=== PATIENT | female | born 1980 | race Asian ===

== ENCOUNTER → 2016-05-16 | Outpatient (CLI) | payer OTHER | LOC: MW.CHGS 14:09 | PROVIDERS: ATTEND Surgery | DX: K21.9 Gastro-esophageal reflux disease without esophagitis (principal) | CPT/HCPCS: 36415; 86677 ==

== ENCOUNTER 2016-08-25 07:10 | Emergency (ER) | payer OTHER ==
[2016-08-25] MEDS ORDERED: Sodium Chloride 0.9% 10 ML Syringe FLUSH PRN (07:24)
[2016-08-25] MEDS ORDERED: Sodium Chloride 0.9% 2.5 ML Syringe FLUSH PRN (07:24)
[2016-08-25] MEDS ORDERED: Ketorolac 30 MG/ML SDV IVPUSH ONE (07:24)
[2016-08-25] MEDS ORDERED: Sodium Chloride 0.9% 1,000 ML IV ONE (07:29)
--- NOTE | 2016-08-25 07:29 | EDM.PDOC ---
ED HPI GENERAL MEDICAL PROBLEM - General Chief Complaint: Abdominal Pain Stated Complaint: ABDOMINAL PAIN AND NUMB LEGS Time Seen by Provider: 08/25/16 07:16 - History of Present Illness INITIAL COMMENTS - FREE TEXT/NARRATIVE: HISTORY AND PHYSICAL: History of present illness: The patient is a 35-year-old female with a long-standing history of dysmenorrhea and infertility was been followed by both our women's clinic as well as [facility]; she most recently saw a provider at [facility] because she was late for her And a test last week that was negative. The patient states that her whole life she has had very heavy periods and very painful periods and she and her significant other have been trying to get so they have been seeing a fertility specialist. She has had multiple ultrasounds as well as blood work regarding today's symptoms and her infertility. She presents today stating that her last period was in June and she started having her period yesterday and it presented in a similar way with heavy flow and severe cramping. She presents today to the ED because of the severe cramping. She says that she was given Toradol by Dr. Hale at [facility] and that seems to work but she is running out of that prescription and she is concerned about using any more of it at home. She took Percocet today that she had left over from a procedure on her ears and said that that did not help. The patient denies any upper abdominal pain fever chills chest pain or shortness of breath but does say that she feels tingly all over because of the discomfort. She also feels somewhat lightheaded because of the discomfort. She has not passed out or blacked out and has no extremity pain weakness back pain. She states that her current pelvic pain is similar to her prior episodes and that there is nothing new about that or the menstrual blood flow. The patient is eating and drinking normally Review of systems: As per history of present illness and below otherwise all systems reviewed and negative. Past medical history: As per history of present illness and as reviewed below otherwise noncontributory. Surgical history: As per history of present illness and as reviewed below otherwise noncontributory. Social history: No reported history of drug or alcohol abuse. Family history: As per history of present illness and as reviewed below otherwise noncontributory. Physical exam: Gen.: Well-developed well-nourished female who looks uncomfortable and somewhat anxious but who is nontoxic HEENT: Atraumatic, normocephalic, negative for conjunctival pallor or scleral icterus, mucous membranes moist, throat clear, neck supple, nontender, trachea midline. Lungs: Clear to auscultation, breath sounds equal bilaterally, chest nontender. Heart: S1S2, regular rate and rhythm no murmurs Abdomen: Soft, nondistended, bowel sounds are slightly hypoactive, there is mild tenderness in the suprapubic pelvic area. Negative for masses or hepatosplenomegaly. Negative for costovertebral tenderness. Pelvis: Stable nontender. Genitourinary: Deferred. Rectal: Deferred. Extremities: Atraumatic, negative for cords or calf pain. Neurovascular unremarkable. Neuro: Awake, alert, oriented. Cranial nerves II through XII unremarkable. Cerebellum unremarkable. Motor and sensory unremarkable throughout. Exam nonfocal. Diagnostics: Serum hCG CBC pelvic ultrasound Therapeutics: IV fluids Toradol Dilaudid I discussed with the patient doing basic labs and she is agreeable. We discussed potentially doing a pelvic ultrasound but she states that she has had multiple ultrasounds she has never been diagnosed with a fibroid or ovarian cysts and she would like to defer that at this time. There is nothing new about the pain only that it is not being controlled at home and she is running out of her Toradol. I will reapproach this with the patient later in her evaluation 0823: Patient states the pain is somewhat better she would like something else for pain. I will give her a small dose of Dilaudid. She would like to pursue the ultrasound at this time I will order it 0940: Ultrasound results were discussed with the patient and care plan for home was discussed. The patient would like to not return [facility] and would like to be referred to [facility] which I will give her that information. She would also like some more Toradol as that seems to help her when she's at home and I will write for some. I also wrote for a few [place] in case the Toradol did not work. Patient states that currently in the ED she feels much improved. I cautioned her on reasons to return to the ED and the need for follow-up. Impression: Dysmenorrhea/menorrhagia with history of same Definitive disposition and diagnosis as appropriate pending reevaluation and review of above. Pelvic Pain Score (Numeric/FACES): 10 - Related Data Allergies Allergy/AdvReac Type Severity Reaction Status Date / Time omeprazole [From Prilosec] Allergy Itching Verified 08/25/16 07:20 omeprazole magnesium Allergy Itching Verified 08/25/16 07:20 [From Prilosec] vitamin C Allergy Rash Uncoded 03/25/16 10:24 Home Meds: Home Meds Iron 1 tab PO DAILY 07/08/15 [History] Labetalol [Normodyne] 200 mg PO BID 07/08/15 [History] Vit B12/Fa/Pyridoxine HCl/AA15 [Glycotrol] 1 tab PO DAILY 10/06/15 [History] Fertility Injections 03/25/16 [History] Yfl121/FA/Omega3/Dha/Fish Oil [ Gummies] 1 each PO 03/25/16 [History] Past Medical History HEENT History: Reports: Hard of Hearing Other HEENT History: has glasses, has bilateral hearing aides Cardiovascular History: Reports: Hypertension Respiratory History: Reports: None Gastrointestinal History: Reports: None Genitourinary History: Reports: UTI, Recurrent Other Genitourinary History: URI 2 months ago, has not reoccured 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 Other OB/BYN History: Excessive Menses 'heavy', 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 Musculoskeletal History: Reports: None Neurological History: Reports: Migraines Other Neuro History: Some headaches, not chronic Psychiatric History: Reports: None Endocrine/Metabolic History: Reports: None Hematologic History: Reports: None Immunologic History: Reports: None Oncologic (Cancer) History: Reports: None Dermatologic History: Reports: None - Infectious Disease History Infectious Disease History: Reports: None - Past Surgical History HEENT Surgical History: Reports: Other (See Below) Female Surgical History: Reports: Other (See Below) Social & Family History - Family History Family Medical History: Noncontributory - Tobacco Use Smoking Status *Q: Never Smoker Second Hand Smoke Exposure: No - Caffeine Use Caffeine Use: Reports: None - Alcohol Use Days Per Week of Alcohol Use: 0 - Recreational Drug Use Recreational Drug Use: No Drug Use in Last 12 Months: No ED ROS GENERAL - Review of Systems Review Of Systems: ROS reveals no pertinent complaints other than HPI. ED EXAM, GENERAL - Physical Exam Exam: See Below (See dictation) Course - Vital Signs Last Recorded V/S: Last Vital Signs Temp 36.4 C 08/25/16 07:18 Pulse 87 08/25/16 08:04 Resp 16 08/25/16 08:04 BP 146/87 H 08/25/16 08:04 Pulse Ox 95 08/25/16 08:04 - Orders/Labs/Meds Orders: Active Orders 24 hr Category Date Time Status Pelvis Non OB Comp [US] Stat Exams 08/25/16 08:22 Taken Sodium Chloride 0.9% [Saline Flush] Med 08/25/16 07:24 Active 10 ml FLUSH ASDIRECTED PRN Sodium Chloride 0.9% [Saline Flush] Med 08/25/16 07:24 Active 2.5 ml FLUSH ASDIRECTED PRN Saline Lock Insert [OM.PC] Stat Oth 08/25/16 07:24 Ordered Medication Orders Sodium Chloride (Saline Flush) 10 ml FLUSH ASDIRECTED PRN PRN Reason: Keep Vein Open Sodium Chloride (Saline Flush) 2.5 ml FLUSH ASDIRECTED PRN PRN Reason: Keep Vein Open Labs: Laboratory Tests 08/25/16 08/25/16 08/25/16 Range/Units 07:25 07:25 08:20 WBC 7.30 (4.0-11.0) K/uL RBC 4.61 (4.30-5.90) M/uL Hgb 13.0 (12.0-16.0) g/dL Hct 38.5 (36.0-46.0) % MCV 83.5 (80.0-98.0) fL MCH 28.2 (27.0-32.0) pg MCHC 33.8 (31.0-37.0) g/dL RDW Std Deviation 38.9 (28.0-62.0) fl RDW Coeff of Gay 13 (11.0-15.0) % Plt Count 351 (150-400) K/uL MPV 8.60 (7.40-12.00) fL Neut % (Auto) 65.9 (48.0-80.0) % Lymph % (Auto) 27.5 (16.0-40.0) % [place] % (Auto) 3.7 (0.0-15.0) % Eos % (Auto) 2.6 (0.0-7.0) % Baso % (Auto) 0.3 (0.0-1.5) % Neut # (Auto) 4.8 (1.4-5.7) K/uL Lymph # (Auto) 2.0 (0.6-2.4) K/uL [place] # (Auto) 0.3 (0.0-0.8) K/uL Eos # (Auto) 0.2 (0.0-0.7) K/uL Baso # (Auto) 0.0 (0.0-0.1) K/uL Nucleated RBC % 0.0 /100WBC Nucleated RBCs # 0 K/uL HCG, Qual NEGATIVE (NEG) Urine Color YELLOW Urine Appearance CLEAR Urine pH 6.0 (5.0-8.0) Ur Specific [place] <= 1.005 (1.001-1.035) Urine Protein NEGATIVE (NEGATIVE) mg/dL Urine Glucose (UA) NEGATIVE (NEGATIVE) mg/dL Urine Ketones NEGATIVE (NEGATIVE) mg/dL Urine Occult Blood LARGE H (NEGATIVE) Urine Nitrite NEGATIVE (NEGATIVE) Urine Bilirubin NEGATIVE (NEGATIVE) Urine Urobilinogen 0.2 (<2.0) EU/dL Ur Leukocyte Esterase NEGATIVE (NEGATIVE) Urine RBC 5-10 (0-2/HPF) Urine WBC 0-1 (0-5/HPF) Ur Epithelial Cells RARE (NONE-FEW) Amorphous Sediment NOT SEEN (NEGATIVE) Urine Bacteria NOT SEEN (NEGATIVE) Urine Mucus NOT SEEN (NONE-MOD) Meds: Medications Generic Name Dose Route Start Last Admin Trade Name Freq PRN Reason Stop Dose Admin Sodium Chloride 10 ml 08/25/16 07:24 Saline Flush FLUSH ASDIRECTED PRN Keep Vein Open Sodium Chloride 2.5 ml 08/25/16 07:24 Saline Flush FLUSH ASDIRECTED PRN Keep Vein Open Discontinued Medications Generic Name Dose Route Start Last Admin Trade Name Freq PRN Reason Stop Dose Admin Hydromorphone HCl 0.5 mg 08/25/16 08:23 08/25/16 08:29 Dilaudid IVPUSH 08/25/16 08:24 0.5 mg ONETIME ONE Administration Sodium Chloride 1,000 mls @ 999 mls/hr 08/25/16 07:29 08/25/16 07:31 Normal Saline IV 08/25/16 08:29 999 mls/hr STAT ONE Administration Ketorolac Tromethamine 30 mg 08/25/16 07:24 08/25/16 07:30 Toradol IVPUSH 08/25/16 07:25 30 mg ONETIME ONE Administration Departure - Departure Time of Disposition: 10:02 Disposition: Home, Self-Care 01 Condition: Good Clinical Impression: Dysmenorrhea Menorrhagia Qualifiers: Menorrahagia type: with irregular cycle Qualified Code(s): N92.1 - Excessive and frequent menstruation with irregular cycle - Discharge Information Forms: ED Department Discharge Additional Instructions: The following information is given to patients seen in the emergency department who are being discharged to home. This information is to outline your options for follow-up care. We provide all patients seen in our emergency department with a follow-up referral. The need for follow-up, as well as the timing and circumstances, are variable depending upon the specifics of your emergency department visit. If you don't have a primary care physician on staff, we will provide you with a referral. We always advise you to contact your personal physician following an emergency department visit to inform them of the circumstance of the visit and for follow-up with them and/or the need for any referrals to a consulting specialist. The emergency department will also refer you to a specialist when appropriate. This referral assures that you have the opportunity for followup care with a specialist. All of these measure are taken in an effort to provide you with optimal care, which includes your followup. Under all circumstances we always encourage you to contact your private physician who remains a resource for coordinating your care. When calling for followup care, please make the office aware that this follow-up is from your recent emergency room visit. If for any reason you are refused follow-up, please contact the [facility] emergency department at and ask to speak to the emergency department charge nurse. [facility] Primary care-Women's Health [address] [place] [address] [place], [place] [id number] [address] [place] [address] Please contact and follow up with your provider at [facility] and also connect with our women's health clinic for further care and evaluation of these chronic problems. Please use medications as needed and directed. Push hydration and return to ER as needed and as discussed - My Orders Last 24 Hours: My Active Orders 08/25/16 07:24 Sodium Chloride 0.9% [Saline Flush] 10 ml FLUSH ASDIRECTED PRN Sodium Chloride 0.9% [Saline Flush] 2.5 ml FLUSH ASDIRECTED PRN Saline Lock Insert [OM.PC] Stat 08/25/16 08:22 Pelvis Non OB Comp [US] Stat - Assessment/Plan Last 24 Hours: My Active Orders 08/25/16 07:24 Sodium Chloride 0.9% [Saline Flush] 10 ml FLUSH ASDIRECTED PRN Sodium Chloride 0.9% [Saline Flush] 2.5 ml FLUSH ASDIRECTED PRN Saline Lock Insert [OM.PC] Stat 08/25/16 08:22 Pelvis Non OB Comp [US] Stat
[2016-08-25] MEDS ORDERED: HYDROmorphone 2 MG/ML Syringe IVPUSH ONE (08:23)
[2016-08-25 10:14] VITALS: BP 123/74
--- NOTE | 2016-08-25 17:51 | US ---
EXAM DATE: 08/25/16 PATIENT'S AGE: 35 Patient: PEYTON DURAN Facility: [place], [place] Site . Site : 1980 Study: US Pelvis [id number]/25/2016 9:24:56 AM Ordering Physician: Zaida Olsen Final Report: HISTORY: Pelvic pain, dysmenorrhea. FINDINGS: Multiple grayscale static images from a transvaginal pelvic ultrasound were evaluated. This measures 12 x 9 x 7 x 9 x 7.7 cm. The echotexture is very heterogeneous. The endometrial stripe difficult to appreciate. The last series of images demonstrates the posterior aspect of the endometrial cavity. It is difficult to determine if there is a 5.1 centimeter abnormally thickened endometrial cavity or subendometrial fibroid. No fluid in the cul-de-sac prior The right ovary measures 3.3 x 2.1 x 1.8 cm. Normal appearance with normal blood flow. The left ovary measures 2.1 x 2.2 x 1.0 cm. Some appearance with normal blood flow. IMPRESSION: 1. Enlarged heterogeneous appearing uterus. 2. The endometrial stripe is very difficult to appreciate. The last series of images demonstrates visualization of the posterior aspect of the endometrial cavity. It is difficult to rib there is a 5.1 cm sub endometrial fibroid or marked thickening of the endometrial cavity. MRI may be of value for further characterization. 3. Normal ovaries. Dictated by Celina Scott MD @ 08/25/2016 9:42:35 AM Dictated by: Celina Scott MD @ 08/25/2016 09:43:14 (Electronic Signature) Report Signed by Proxy. [facility] VA MEDICAL CENTERLeonel
== END 2016-08-25 10:14 | disposition home or self-care (01) ==
LOC: MW.ED 07:10
DX: N94.6 Dysmenorrhea, unspecified (principal); N92.1 Excessive and frequent menstruation with irregular cycle; I10 Essential (primary) hypertension; G43.909 Migraine, unspecified, not intractable, without status migrainosus; Z88.8 Allergy status to other drugs, medicaments and biological substances
CPT/HCPCS: 36415; 76856; 81001; 84703; 85025; 96361; 96374; 96375; 99284; J1170; J1885; J7040

== ENCOUNTER 2016-12-07 17:55 | Emergency (ER) | payer OTHER ==
--- NOTE | 2016-12-07 18:56 | EDM.PDOC ---
ED HPI GENERAL MEDICAL PROBLEM - General Chief Complaint: Genitourinary Problem Stated Complaint: UTI Time Seen by Provider: 12/07/16 18:04 Source of Information: Reports: Patient History Limitations: Reports: No Limitations - History of Present Illness INITIAL COMMENTS - FREE TEXT/NARRATIVE: HISTORY AND PHYSICAL: History of present illness: [36-year-old female with a prior history of urinary tract infection now complaining of dysuria concerned that she has urinary tract infection. Patient denies vaginal discharge. She denies possible and it was tested yesterday. Patient does not of back pain fever nausea or vomiting. She is not currently on antibiotics] Review of systems: As per history of present illness and below otherwise all systems reviewed and negative. Past medical history: As per history of present illness and as reviewed below otherwise noncontributory. Surgical history: As per history of present illness and as reviewed below otherwise noncontributory. Social history: No reported history of drug or alcohol abuse. Family history: As per history of present illness and as reviewed below otherwise noncontributory. Physical exam: Well-appearing patient distress clear lungs regular rhythm no tachycardia nontender abdomen and pelvis, no CVA tenderness. Normal extremities HEENT: Normocephalic, atraumatic, pupils normal and symmetrical, supple neck, no meningismus, normal color Lungs: Normal and symmetrical chest wall excursion bilateral with no tachypnea or increased work of breathing, grossly normal chest exam Heart: No tachycardia in triage Abdomen: Normal-appearing, nondistended, no visible mass or asymmetry Pelvis: Normal-appearing Genitourinary: Deferred Rectal exam: Deferred Extremities: Atraumatic, normal use and range of motion, no visible evidence of gross neurovascular compromise Neuro: Awake, alert, oriented. Normal and appropriate mental status. Cranial nerves grossly unremarkable. Motor function normal. Nonfocal neurologic exam. Diagnostics: UA pending Therapeutics: [] Impression: [Urinary tract infection Dysuria] Plan: [Signs and symptoms consistent with UTI. UA pending. Keflex will be prescribed as well as peridium. Negative test yesterday. No further workup or treatment indicated. Patient with no systemic symptoms or evidence of pyelonephritis. Patient and family agree with outpatient follow-up and strict return precautions given] Definitive disposition and diagnosis as appropriate pending reevaluation and review of above. Bladder Pain Score (Numeric/FACES): 5 - Related Data Allergies Allergy/AdvReac Type Severity Reaction Status Date / Time paper tape Allergy Rash Uncoded 12/07/16 18:35 vitamin C Allergy Rash Uncoded 03/25/16 10:24 Home Meds: Home Meds Iron 1 tab PO DAILY 07/08/15 [History] Labetalol [Normodyne] 200 mg PO BID 07/08/15 [History] Vit B12/Fa/Pyridoxine HCl/AA15 [Glycotrol] 1 tab PO DAILY 10/06/15 [History] Fertility Injections 03/25/16 [History] Ftq901/FA/Omega3/Dha/Fish Oil [ Gummies] 1 each PO 03/25/16 [History] Cephalexin [Keflex] 500 mg PO QID 5 Days capsule 12/07/16 [Rx] Phenazopyridine HCl [Pyridium] 200 mg PO TID #6 tablet 12/07/16 [Rx] Prasterone (DHEA) [Dhea 25] 25 mg BID 12/07/16 [History] Past Medical History HEENT History: Reports: Hard of Hearing Other HEENT History: has glasses, has bilateral hearing aides Cardiovascular History: Reports: Hypertension Respiratory History: Reports: None Gastrointestinal History: Reports: None Genitourinary History: Reports: UTI, Recurrent Other Genitourinary History: URI 2 months ago 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 Other OB/BYN History: Excessive Menses 'heavy', 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 Musculoskeletal History: Reports: None Neurological History: Reports: Migraines Other Neuro History: Some headaches, not chronic Psychiatric History: Reports: None Endocrine/Metabolic History: Reports: None Hematologic History: Reports: None Immunologic History: Reports: None Oncologic (Cancer) History: Reports: None Dermatologic History: Reports: None - Infectious Disease History Infectious Disease History: Reports: None - Past Surgical History Head Surgeries/Procedures: Reports: None HEENT Surgical History: Reports: Other (See Below) Female Surgical History: Reports: Other (See Below) Other Female Surgeries/Procedures: will be starting fertility tx again soon Social & Family History - Family History Family Medical History: Noncontributory - Tobacco Use Smoking Status *Q: Never Smoker Second Hand Smoke Exposure: No - Caffeine Use Caffeine Use: Reports: None - Alcohol Use Days Per Week of Alcohol Use: 0 - Recreational Drug Use Recreational Drug Use: No Drug Use in Last 12 Months: No ED ROS GENERAL - Review of Systems Review Of Systems: See Below (History of present illness) ED EXAM, RENAL/ - Physical Exam Exam: See Below (History of present illness) Course - Vital Signs Last Recorded V/S: Last Vital Signs Temp 36.7 C 12/07/16 18:22 Pulse 88 12/07/16 18:22 Resp 18 12/07/16 18:22 BP 140/91 H 12/07/16 18:22 Pulse Ox 97 12/07/16 18:22 - Orders/Labs/Meds Orders: Active Orders 24 hr Category Date Time Status UA W/MICROSCOPIC [URIN] Stat Lab 12/07/16 18:30 Results Labs: Laboratory Tests 12/07/16 Range/Units 18:30 Urine Color YELLOW Urine Appearance CLEAR Urine pH 6.0 (5.0-8.0) Ur Specific [employer] 1.025 (1.001-1.035) Urine Protein NEGATIVE (NEGATIVE) mg/dL Urine Glucose (UA) NEGATIVE (NEGATIVE) mg/dL Urine Ketones NEGATIVE (NEGATIVE) mg/dL Urine Occult Blood NEGATIVE (NEGATIVE) Urine Nitrite NEGATIVE (NEGATIVE) Urine Bilirubin NEGATIVE (NEGATIVE) Urine Urobilinogen 0.2 (<2.0) EU/dL Ur Leukocyte Esterase TRACE (NEGATIVE) Departure - Departure Time of Disposition: 18:52 Disposition: Home, Self-Care 01 Condition: Good Clinical Impression: Urinary tract infection - Discharge Information Instructions: Urinary Tract Infection, Adult, [id number] Referrals: PCP,None [Primary Care Provider] - Additional Instructions: You have a urinary tract infection. Finish Keflex as prescribed. Take Pyridium as needed for burning with urination. Rest and drink plenty of fluids. Follow- up with your DrKim in 2-3 days and return immediately for new severe or worsening symptoms specifically for worsening signs of infection including fever and/or vomiting - My Orders Last 24 Hours: My Active Orders 12/07/16 18:30 UA W/MICROSCOPIC [URIN] Stat - Assessment/Plan Last 24 Hours: My Active Orders 12/07/16 18:30 UA W/MICROSCOPIC [URIN] Stat
[2016-12-07 19:10] VITALS: BP 146/96
== END 2016-12-07 19:07 | disposition home or self-care (01) ==
LOC: MW.ED 17:55
DX: N39.0 Urinary tract infection, site not specified (principal); Z79.899 Other long term (current) drug therapy
CPT/HCPCS: 81001; 99283; 99284

== ENCOUNTER 2016-12-08 21:44 | Emergency (ER) | payer OTHER ==
[2016-12-08] MEDS ORDERED: Ketorolac 60 MG/2 ML SDV IM ONE (21:57)
--- NOTE | 2016-12-08 22:02 | EDM.PDOC ---
ED HPI GENERAL MEDICAL PROBLEM - General Chief Complaint: Upper Extremity Injury/Pain Stated Complaint: PT HURT RT ELBOW Time Seen by Provider: 12/08/16 21:57 Source of Information: Reports: Patient History Limitations: Reports: No Limitations - History of Present Illness INITIAL COMMENTS - FREE TEXT/NARRATIVE: HISTORY AND PHYSICAL: []36-year-old female presenting with right elbow pain History of Present Illness: []Patient has history of epicondylar tendinitis and was not wearing her brace when she was doing more in the kitchen lifted some things and excruciating pain to her right elbow. Complains of some pain at tingling to her fingers. She is taking her Celebrex at home and has not had relief from the discomfort Review of Systems: As per history of present illness and below otherwise all systems reviewed and negative. Past medical history: As per history of present illness and as reviewed below otherwise noncontributory. Surgical history: As per history of present illness and as reviewed below otherwise noncontributory. Social history: No reported history of drug or alcohol abuse. Family history: As per history of present illness and as reviewed below otherwise noncontributory. Physical exam: Alert female who obviously has some pain. Accompanied by her she is answering questions appropriately. Using full sentences and is not short of breath. She is nontoxic in appearance HEENT: Atraumatic, normocehpalic, pupils reactive, negative for conjunctival pallor or scleral icterus,r, neck supple, nontender, trachea midline. Lungs: Clear to auscultation, breath sounds equal bilaterally, chest non tender. Heart: S1S2, regular, negative for clicks, rubs, or JVD. Abdomen: Soft, nondistended, nontender. Pelvis: Stable nontender. Genitourinary: Deferred. Rectal: Deferred Extremities: Atraumatic, negative for cords or calf pain. Right elbow with edema. Mild heat. Full range of motion is noted to her right upper extremity. Pulses intact. Good cap refill to the fingers and good sensation. Neurovascular unremarkable. Neuro: Awake, alert, oriented. Cranial nerves II through XII unremarkable. Cerebellum unremarkable. Motor and sensory unremarkable throughout. Exam nonfocal. Diagnostics: [] Therapeutics: []Toradol 60 IM Impression: []Right epicondylar tendinitis Plan: [] Discharge to home Prednisone for home use Use brace daily Follow-up with your orthopedics pediatric physician Definitive disposition and diagnosis as appropriate pending reevaluation and review of above. - Related Data Allergies Allergy/AdvReac Type Severity Reaction Status Date / Time paper tape Allergy Rash Uncoded 12/07/16 18:35 vitamin C Allergy Rash Uncoded 03/25/16 10:24 Home Meds: Home Meds Iron 1 tab PO DAILY 07/08/15 [History] Labetalol [Normodyne] 200 mg PO BID 07/08/15 [History] Vit B12/Fa/Pyridoxine HCl/AA15 [Glycotrol] 1 tab PO DAILY 10/06/15 [History] Fertility Injections 03/25/16 [History] Onr702/FA/Omega3/Dha/Fish Oil [ Gummies] 1 each PO 03/25/16 [History] Cephalexin [Keflex] 500 mg PO QID 5 Days capsule 12/07/16 [Rx] Phenazopyridine HCl [Pyridium] 200 mg PO TID #6 tablet 12/07/16 [Rx] Prasterone (DHEA) [Dhea 25] 25 mg BID 12/07/16 [History] methylPREDNISolone [Medrol] 4 mg PO ASDIRECTED #1 dosepk 12/08/16 [Rx] Past Medical History HEENT History: Reports: Hard of Hearing Other HEENT History: has glasses, has bilateral hearing aides Cardiovascular History: Reports: Hypertension Respiratory History: Reports: None Gastrointestinal History: Reports: None Genitourinary History: Reports: UTI, Recurrent Other Genitourinary History: URI 2 months ago MUSIC COPYIST 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: Reports: None Other OB/BYN History: Excessive Menses 'heavy', 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 Musculoskeletal History: Reports: None Neurological History: Reports: Migraines Other Neuro History: Some headaches, not chronic Psychiatric History: Reports: None Endocrine/Metabolic History: Reports: None Hematologic History: Reports: None Immunologic History: Reports: None Oncologic (Cancer) History: Reports: None Dermatologic History: Reports: None - Infectious Disease History Infectious Disease History: Reports: None - Past Surgical History Head Surgeries/Procedures: Reports: None HEENT Surgical History: Reports: Other (See Below) Female Surgical History: Reports: Other (See Below) Other Female Surgeries/Procedures: will be starting fertility tx again soon Social & Family History - Family History Family Medical History: Noncontributory - Tobacco Use Smoking Status *Q: Never Smoker Second Hand Smoke Exposure: No - Caffeine Use Caffeine Use: Reports: None - Alcohol Use Days Per Week of Alcohol Use: 0 - Recreational Drug Use Recreational Drug Use: No Drug Use in Last 12 Months: No Review of Systems - Review of Systems Review Of Systems: ROS reveals no pertinent complaints other than HPI. ED EXAM, GENERAL - Physical Exam Exam: See Below (See dictation) Course - Orders/Labs/Meds Orders: Active Orders 24 hr Category Date Time Status Ketorolac [Toradol] Med 12/08/16 21:57 Once 60 mg IM ONETIME ONE Departure - Departure Time of Disposition: 22:00 Disposition: Home, Self-Care 01 Condition: Good Clinical Impression: Right elbow tendonitis - Discharge Information Prescriptions: methylPREDNISolone [Medrol] 4 mg PO ASDIRECTED #1 dosepk Instructions: Tendinitis, [id number]-Clld Referrals: PCP,None [Primary Care Provider] - Additional Instructions: The following information is given to patients seen in the emergency department who are being discharged to home. This information is to outline your options for follow-up care. We provide all patients seen in our emergency department with a follow-up referral. The need for follow-up, as well as the timing and circumstances, are variable depending upon the specifics of your emergency department visit. If you don't have a primary care physician on staff, we will provide you with a referral. We always advise you to contact your personal physician following an emergency department visit to inform them of the circumstance of the visit and for follow-up with them and/or the need for any referrals to a consulting specialist. The emergency department will also refer you to a specialist when appropriate. This referral assures that you have the opportunity for followup care with a specialist. All of these measure are taken in an effort to provide you with optimal care, which includes your followup. Under all circumstances we always encourage you to contact your private physician who remains a resource for coordinating your care. When calling for followup care, please make the office aware that this follow-up is from your recent emergency room visit. If for any reason you are refused follow-up, please contact the [facility] emergency department at and asked to speak to the emergency department charge nurse. 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
[2016-12-08 23:05] VITALS: BP 141/81
== END 2016-12-08 22:31 | disposition home or self-care (01) ==
LOC: MW.ED 21:44
DX: M77.11 Lateral epicondylitis, right elbow (principal); I10 Essential (primary) hypertension; G43.909 Migraine, unspecified, not intractable, without status migrainosus; Z87.440 Personal history of urinary (tract) infections; Z88.8 Allergy status to other drugs, medicaments and biological substances; Z91.09 Other allergy status, other than to drugs and biological substances
CPT/HCPCS: 96372; 99283; J1885; 99282

== ENCOUNTER 2017-01-06 00:46 | Observation (INO) | payer OTHER ==
[2017-01-06] MEDS ORDERED: Sodium Chloride 0.9% 1,000 ML IV SCH (01:00)
--- NOTE | 2017-01-06 01:00 | EDM.PDOC ---
ED HPI GENERAL MEDICAL PROBLEM - General Chief Complaint: Abdominal Pain Stated Complaint: ABDOMINAL P AIN Time Seen by Provider: 01/06/17 00:58 - History of Present Illness INITIAL COMMENTS - FREE TEXT/NARRATIVE: HISTORY AND PHYSICAL: History of present illness: Patient 36-year-old female who is currently undergoing fertility therapy presents with concern of abdominal pain this came on somewhat acutely she denies fever chills nausea vomiting denies urinary symptoms or vaginal discharge or irregular bleeding denies trauma Review of systems: As per history of present illness and below otherwise all systems reviewed and negative. Past medical history: As per history of present illness and as reviewed below otherwise noncontributory. Surgical history: As per history of present illness and as reviewed below otherwise noncontributory. Social history: No reported history of drug or alcohol abuse. Family history: As per history of present illness and as reviewed below otherwise noncontributory. Physical exam: HEENT: Atraumatic, normocephalic, pupils reactive, negative for conjunctival pallor or scleral icterus, mucous membranes moist, throat clear, neck supple, nontender, trachea midline. Lungs: Clear to auscultation, breath sounds equal bilaterally, chest nontender. Heart: S1S2, regular, negative for clicks, rubs, or JVD. Abdomen: Soft, nondistended, nonlocalized tenderness no rebound no guarding. Negative for masses or hepatosplenomegaly. Negative for costovertebral tenderness. Pelvis: Stable nontender. Genitourinary: Deferred. Rectal: Deferred. Extremities: Atraumatic, negative for cords or calf pain. Neurovascular unremarkable. Neuro: Awake, alert, oriented. Cranial nerves II through XII unremarkable. Cerebellum unremarkable. Motor and sensory unremarkable throughout. Exam nonfocal. Diagnostics: CBC CMP hCG UA CT abdomen and pelvis Therapeutics: saline 1 L bolus Impression: #1 abdominal pain Definitive disposition and diagnosis as appropriate pending reevaluation and review of above. abdominal pain Pain Score (Numeric/FACES): 10 - Related Data Allergies Allergy/AdvReac Type Severity Reaction Status Date / Time paper tape Allergy Rash Uncoded 01/06/17 00:51 vitamin C Allergy Rash Uncoded 01/06/17 00:51 Home Meds: Home Meds Iron 1 tab PO DAILY 07/08/15 [History] Labetalol [Normodyne] 200 mg PO BID 07/08/15 [History] Vit B12/Fa/Pyridoxine HCl/AA15 [Glycotrol] 1 tab PO DAILY 10/06/15 [History] Fertility Injections 03/25/16 [History] Brs209/FA/Omega3/Dha/Fish Oil [ Gummies] 1 each PO 03/25/16 [History] Cephalexin [Keflex] 500 mg PO QID 5 Days capsule 12/07/16 [Rx] Phenazopyridine HCl [Pyridium] 200 mg PO TID #6 tablet 12/07/16 [Rx] Prasterone (DHEA) [Dhea 25] 25 mg BID 12/07/16 [History] methylPREDNISolone [Medrol] 4 mg PO ASDIRECTED #1 dosepk 12/08/16 [Rx] Past Medical History - Past Health History Medical/Surgical History: Denies Medical/Surgical History HEENT History: Reports: Hard of Hearing Other HEENT History: has glasses, has bilateral hearing aides Cardiovascular History: Reports: Hypertension Respiratory History: Reports: None Gastrointestinal History: Reports: None Genitourinary History: Reports: UTI, Recurrent Other Genitourinary History: URI 2 months ago HOSPICE NURSE PRACTITIONER History: Reports: None Other OB/BYN History: Excessive Menses 'heavy', 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 Musculoskeletal History: Reports: None Neurological History: Reports: Migraines Other Neuro History: Some headaches, not chronic Psychiatric History: Reports: None Endocrine/Metabolic History: Reports: None Hematologic History: Reports: None Immunologic History: Reports: None Oncologic (Cancer) History: Reports: None Dermatologic History: Reports: None - Infectious Disease History Infectious Disease History: Reports: None - Past Surgical History Head Surgeries/Procedures: Reports: None HEENT Surgical History: Reports: Other (See Below) Female Surgical History: Reports: Other (See Below) Other Female Surgeries/Procedures: will be starting fertility tx again soon Social & Family History - Family History Family Medical History: Noncontributory - Tobacco Use Smoking Status *Q: Never Smoker Second Hand Smoke Exposure: No - Caffeine Use Caffeine Use: Reports: Coffee, Soda - Alcohol Use Days Per Week of Alcohol Use: 0 - Recreational Drug Use Recreational Drug Use: No Drug Use in Last 12 Months: No ED ROS GENERAL - Review of Systems Review Of Systems: ROS reveals no pertinent complaints other than HPI. ED EXAM, GENERAL - Physical Exam Exam: See Below (See dictation) Course - Vital Signs Text/Narrative:: Repeat abdominal exam has tenderness that's more localized right lower quadrant there is some equivocal guarding no rebound lab CT was discussed with Dr. Hollingsworth general surgeon suspension cord tier who agrees with admission for observation IV hydration patient to be kept nothing by mouth narcotic analgesics for pain repeat CBC in a.m. I discussed this plan with patient and family who agree Last Recorded V/S: Last Vital Signs Temp 36.3 C 01/06/17 00:51 Pulse 87 01/06/17 00:51 Resp 18 01/06/17 00:51 BP 144/88 H 01/06/17 00:51 Pulse Ox 98 01/06/17 00:51 - Orders/Labs/Meds Orders: Active Orders 24 hr Category Date Time Status Admission Status [Patient Status] [ADT] Stat ADT 01/06/17 02:15 Active Abdomen Pelvis wo Cont [CT] Stat Exams 01/06/17 00:56 Taken UA W/MICROSCOPIC [URIN] Stat Lab 01/06/17 01:50 Results Sodium Chloride 0.9% [Normal Saline] 1,000 ml Med 01/06/17 01:00 Active IV ASDIRECTED Medication Orders Sodium Chloride (Normal Saline) 1,000 mls @ 999 mls/hr IV ASDIRECTED DAYO Last Admin: 01/06/17 01:02 Dose: 999 mls/hr Labs: Laboratory Tests 01/05/17 01/05/17 01/05/17 Range/Units 23:55 23:55 23:55 WBC 20.01 H (4.0-11.0) K/uL RBC 4.39 (4.30-5.90) M/uL Hgb 13.1 (12.0-16.0) g/dL Hct 37.2 (36.0-46.0) % MCV 84.7 (80.0-98.0) fL MCH 29.8 (27.0-32.0) pg MCHC 35.2 (31.0-37.0) g/dL RDW Std Deviation 38.9 (28.0-62.0) fl RDW Coeff of Gay 13 (11.0-15.0) % Plt Count 274 (150-400) K/uL MPV 8.70 (7.40-12.00) fL Neut % (Auto) 78.3 (48.0-80.0) % Lymph % (Auto) 15.6 L (16.0-40.0) % Waldo % (Auto) 5.7 (0.0-15.0) % Eos % (Auto) 0.3 (0.0-7.0) % Baso % (Auto) 0.1 (0.0-1.5) % Neut # (Auto) 15.6 H (1.4-5.7) K/uL Lymph # (Auto) 3.1 H (0.6-2.4) K/uL Waldo # (Auto) 1.2 H (0.0-0.8) K/uL Eos # (Auto) 0.1 (0.0-0.7) K/uL Baso # (Auto) 0.0 (0.0-0.1) K/uL Nucleated RBC % 0.0 /100WBC Nucleated RBCs # 0 K/uL Sodium 136 (136-146) mmol/L Potassium 3.9 (3.5-5.1) mmol/L Chloride 102 (98-110) mmol/L Carbon Dioxide 22 (21-31) mmol/L BUN 10 (6.0-23.0) mg/dL Creatinine 0.8 (0.6-1.5) mg/dL Est Cr Clr Drug Dosing 69.16 mL/min Estimated GFR (MDRD) > 60.0 ml/min Glucose 153 H (60-110) mg/dL Calcium 9.6 (8.8-10.8) mg/dL Total Bilirubin 0.9 (0.1-1.5) mg/dL AST 23 (5-40) IU/L ALT 14 (8-54) IU/L Alkaline Phosphatase 49 (40-150) Total Protein 7.7 (6.0-8.0) g/dL Albumin 4.2 (3.5-5.0) g/dL Globulin 3.5 (2.0-3.5) g/dL Albumin/Globulin Ratio 1.2 L (1.3-2.8) HCG, Qual NEGATIVE (NEG) Urine Color Urine Appearance Urine pH (5.0-8.0) Ur Specific [place] (1.001-1.035) Urine Protein (NEGATIVE) mg/dL Urine Glucose (UA) (NEGATIVE) mg/dL Urine Ketones (NEGATIVE) mg/dL Urine Occult Blood (NEGATIVE) Urine Nitrite (NEGATIVE) Urine Bilirubin (NEGATIVE) Urine Urobilinogen (<2.0) EU/dL Ur Leukocyte Esterase (NEGATIVE) 01/06/17 Range/Units 01:50 WBC (4.0-11.0) K/uL RBC (4.30-5.90) M/uL Hgb (12.0-16.0) g/dL Hct (36.0-46.0) % MCV (80.0-98.0) fL MCH (27.0-32.0) pg MCHC (31.0-37.0) g/dL RDW Std Deviation (28.0-62.0) fl RDW Coeff of Gay (11.0-15.0) % Plt Count (150-400) K/uL MPV (7.40-12.00) fL Neut % (Auto) (48.0-80.0) % Lymph % (Auto) (16.0-40.0) % Waldo % (Auto) (0.0-15.0) % Eos % (Auto) (0.0-7.0) % Baso % (Auto) (0.0-1.5) % Neut # (Auto) (1.4-5.7) K/uL Lymph # (Auto) (0.6-2.4) K/uL Waldo # (Auto) (0.0-0.8) K/uL Eos # (Auto) (0.0-0.7) K/uL Baso # (Auto) (0.0-0.1) K/uL Nucleated RBC % /100WBC Nucleated RBCs # K/uL Sodium (136-146) mmol/L Potassium (3.5-5.1) mmol/L Chloride (98-110) mmol/L Carbon Dioxide (21-31) mmol/L BUN (6.0-23.0) mg/dL Creatinine (0.6-1.5) mg/dL Est Cr Clr Drug Dosing mL/min Estimated GFR (MDRD) ml/min Glucose (60-110) mg/dL Calcium (8.8-10.8) mg/dL Total Bilirubin (0.1-1.5) mg/dL AST (5-40) IU/L ALT (8-54) IU/L Alkaline Phosphatase (40-150) Total Protein (6.0-8.0) g/dL Albumin (3.5-5.0) g/dL Globulin (2.0-3.5) g/dL Albumin/Globulin Ratio (1.3-2.8) HCG, Qual (NEG) Urine Color YELLOW Urine Appearance SLT CLOUDY Urine pH 6.0 (5.0-8.0) Ur Specific [place] <= 1.005 (1.001-1.035) Urine Protein NEGATIVE (NEGATIVE) mg/dL Urine Glucose (UA) NEGATIVE (NEGATIVE) mg/dL Urine Ketones TRACE H (NEGATIVE) mg/dL Urine Occult Blood LARGE H (NEGATIVE) Urine Nitrite NEGATIVE (NEGATIVE) Urine Bilirubin NEGATIVE (NEGATIVE) Urine Urobilinogen 0.2 (<2.0) EU/dL Ur Leukocyte Esterase NEGATIVE (NEGATIVE) Meds: Medications Generic Name Dose Route Start Last Admin Trade Name Freq PRN Reason Stop Dose Admin Sodium Chloride 1,000 mls @ 999 mls/hr 01/06/17 01:00 01/06/17 01:02 Normal Saline IV 999 mls/hr ASDIRECTED DAYO Administration Discontinued Medications Generic Name Dose Route Start Last Admin Trade Name Freq PRN Reason Stop Dose Admin Hydromorphone HCl 1 mg 01/06/17 02:12 Dilaudid IVPUSH 01/06/17 02:13 ONETIME ONE Ondansetron HCl 4 mg 01/06/17 01:05 01/06/17 01:09 Zofran IVPUSH 01/06/17 01:06 4 mg ONETIME ONE Administration Departure - Departure Time of Disposition: 02:21 Disposition: Refer to Observation Condition: Good Clinical Impression: Abdominal pain - Discharge Information Referrals: Ana [facility] [Primary Care Provider] - Forms: ED Department Discharge - My Orders Last 24 Hours: My Active Orders 01/06/17 00:56 Abdomen Pelvis wo Cont [CT] Stat 01/06/17 01:00 Sodium Chloride 0.9% [Normal Saline] 1,000 ml IV ASDIRECTED 01/06/17 01:50 UA W/MICROSCOPIC [URIN] Stat 01/06/17 02:15 Admission Status [Patient Status] [ADT] Stat - Assessment/Plan Last 24 Hours: My Active Orders 01/06/17 00:56 Abdomen Pelvis wo Cont [CT] Stat 01/06/17 01:00 Sodium Chloride 0.9% [Normal Saline] 1,000 ml IV ASDIRECTED 01/06/17 01:50 UA W/MICROSCOPIC [URIN] Stat 01/06/17 02:15 Admission Status [Patient Status] [ADT] Stat
[2017-01-06] MEDS ORDERED: Ondansetron 4 MG/2 ML SDV IVPUSH ONE (01:05)
[2017-01-06 01:32] LABS: CHLORIDE,CL 102 mmol/L (98-110); SODIUM,NA 136 mmol/L (136-146)
[2017-01-06] MEDS ORDERED: HYDROmorphone 1 MG/ML Syringe IVPUSH ONE (02:12)
[2017-01-06] MEDS ORDERED: Ondansetron 4 MG/2 ML SDV IVPUSH PRN (02:24)
[2017-01-06] MEDS: Sodium Chloride 0.9% 1,000 ML IV SCH ×2 (03:14→09:32)
[2017-01-06] MEDS: HYDROmorphone 1 MG/ML Syringe IVPUSH PRN ×3 (04:08→11:38)
--- NOTE | 2017-01-06 08:12 | PCM.HP ---
H&P History of Present Illness - General Date of Service: 01/06/17 Admit Problem/Dx: Admission Diagnosis/Problem Admission Diagnosis/Problem Abdominal pain Source of Information: Patient History Limitations: Reports: No Limitations - History of Present Illness Onset of Symptoms: Reports: Gradual Symptom Onset Date: 01/04/17 Duration of Symptoms: Reports: Day(s):, Chronic, Heavy Location: Reports: Abdomen Quality: Reports: Pressure, Same as Previous Episode Severity: Moderate Improves with: Reports: Other Worsens with: Reports: Movement Associated Symptoms: Reports: Loss of Appetite, Nausea/Vomiting. Denies: Chest Pain, Cough, Fever/Chills abdominal pain Pain Score (Numeric/FACES): 10 - Related Data Allergies/Adverse Reactions: Allergies Allergy/AdvReac Type Severity Reaction Status Date / Time paper tape Allergy Rash Uncoded 01/06/17 00:51 vitamin C Allergy Rash Uncoded 01/06/17 00:51 Home Medications: Home Meds Iron 1 tab PO DAILY 07/08/15 [History] Labetalol [Normodyne] 200 mg PO BID 07/08/15 [History] Vit B12/Fa/Pyridoxine HCl/AA15 [Glycotrol] 1 tab PO DAILY 10/06/15 [History] Fertility Injections 03/25/16 [History] Vib347/FA/Omega3/Dha/Fish Oil [ Gummies] 1 each PO 03/25/16 [History] Cephalexin [Keflex] 500 mg PO QID 5 Days capsule 12/07/16 [Rx] Phenazopyridine HCl [Pyridium] 200 mg PO TID #6 tablet 12/07/16 [Rx] Prasterone (DHEA) [Dhea 25] 25 mg BID 12/07/16 [History] methylPREDNISolone [Medrol] 4 mg PO ASDIRECTED #1 dosepk 12/08/16 [Rx] Past Medical History - Past Health History Medical/Surgical History: Denies Medical/Surgical History HEENT History: Reports: Hard of Hearing Other HEENT History: has glasses, has bilateral hearing aides Cardiovascular History: Reports: Hypertension Respiratory History: Reports: None Gastrointestinal History: Reports: None Genitourinary History: Reports: UTI, Recurrent Other Genitourinary History: URI 2 months ago CUSTOMER SUPPORT SPECIALIST History: Reports: None Other OB/BYN History: Excessive Menses 'heavy', 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 Musculoskeletal History: Reports: None Neurological History: Reports: Migraines Other Neuro History: Some headaches, not chronic Psychiatric History: Reports: None Endocrine/Metabolic History: Reports: None Hematologic History: Reports: None Immunologic History: Reports: None Oncologic (Cancer) History: Reports: None Dermatologic History: Reports: None - Infectious Disease History Infectious Disease History: Reports: Chicken Pox, Measles, Mumps, Rubella - Past Surgical History Head Surgeries/Procedures: Reports: None HEENT Surgical History: Reports: Other (See Below) Other HEENT Surgeries/Procedures: Mastoidectomy Female Surgical History: Reports: Other (See Below) Other Female Surgeries/Procedures: will be starting fertility tx again soon. Hysteroscopy Social & Family History - Family History Family Medical History: Noncontributory - Tobacco Use Smoking Status *Q: Never Smoker Second Hand Smoke Exposure: No - Caffeine Use Caffeine Use: Reports: Coffee, Soda, Tea - Alcohol Use Days Per Week of Alcohol Use: 0 - Recreational Drug Use Recreational Drug Use: No Drug Use in Last 12 Months: No H&P Review of Systems - Review of Systems: Review Of Systems: See Below General: Reports: Decreased Appetite. Denies: Fever, Night Sweats HEENT: Reports: No Symptoms Pulmonary: Denies: Shortness of Breath, Wheezing Cardiovascular: Denies: Chest Pain Gastrointestinal: Reports: Abdominal Pain, Decreased Appetite, Flatus, Nausea. Denies: Black Stool, Bloody Stool, Constipation, Distension, Vomiting Genitourinary: Denies: Dysuria, Frequency, Burning Musculoskeletal: Reports: No Symptoms Skin: Reports: No Symptoms Psychiatric: Reports: No Symptoms Neurological: Reports: No Symptoms Hematologic/Lymphatic: Reports: No Symptoms Immunologic: Reports: No Symptoms Exam - Exam Exam: See Below - Vital Signs Vital Signs: Last Vital Signs Temp 98.9 F 01/06/17 03:00 Pulse 92 01/06/17 03:00 Resp 18 01/06/17 03:00 BP 167/96 H 01/06/17 03:00 Pulse Ox 96 01/06/17 03:00 Weight: 141 lb 8.588 oz - Exam General: Alert, Oriented, Cooperative, Moderate Distress HEENT: Conjunctiva Clear, EOMI, Pupils Equal, Pupils Reactive. No: Scleral Icterus Neck: Supple, Trachea Midline Lungs: Clear to Auscultation, Normal Respiratory Effort Cardiovascular: Regular Rate, Regular Rhythm, Normal S1, Normal S2. No: Tachycardia, Systolic Murmur, Diastolic Murmur GI/Abdominal Exam: Soft, No Distention, Guarding, Tender, Mass (sensation of fullness in the left lower abdomen.). No: Rigid, Rebound, Hernia (Female) Exam: Deferred (Industrial Designer consult requested.), Other (currently menstruating) Rectal (Female) Exam: Deferred Back Exam: Normal Inspection Extremities: Normal Inspection, Normal Range of Motion, No Pedal Edema Peripheral Pulses: 4+: Posterior Tibial (L), Posterior Tibial (R), Dorsalis Pedis (L), Dorsalis Pedis (R) Skin: Warm, Dry, Intact Neurological: Cranial Nerves Intact Neuro Extensive - Mental Status: Alert, Oriented x3, Normal Mood/Affect, Normal Cognition Psychiatric: Alert, Normal Affect, Normal Mood - Patient Data Lab Results Last 24 hrs: Laboratory Results - last 24 hr 01/06/17 Range/Units 05:20 WBC 18.38 H (4.0-11.0) K/uL RBC 3.93 L (4.30-5.90) M/uL Hgb 11.4 L (12.0-16.0) g/dL Hct 33.8 L (36.0-46.0) % MCV 86.0 (80.0-98.0) fL MCH 29.0 (27.0-32.0) pg MCHC 33.7 (31.0-37.0) g/dL RDW Std Deviation 40.1 (28.0-62.0) fl RDW Coeff of Gay 13 (11.0-15.0) % Plt Count 264 (150-400) K/uL MPV 8.70 (7.40-12.00) fL Neut % (Auto) 81.2 H (48.0-80.0) % Lymph % (Auto) 12.6 L (16.0-40.0) % Holt % (Auto) 5.8 (0.0-15.0) % Eos % (Auto) 0.3 (0.0-7.0) % Baso % (Auto) 0.1 (0.0-1.5) % Neut # (Auto) 14.9 H (1.4-5.7) K/uL Lymph # (Auto) 2.3 (0.6-2.4) K/uL Holt # (Auto) 1.1 H (0.0-0.8) K/uL Eos # (Auto) 0.1 (0.0-0.7) K/uL Baso # (Auto) 0.0 (0.0-0.1) K/uL Nucleated RBC % 0.0 /100WBC Nucleated RBCs # 0 K/uL Result Diagrams: 01/06/17 05:20 01/05/17 23:55 *Q Meaningful Use (ADM) - VTE *Q VTE Criteria *Q: - Stroke *Q Stroke Criteria *Q: - AMI *Q AMI Criteria *Q: - Problem List (1) Abdominal fullness in left lower quadrant SNOMED Code(s): 055604723 ICD Code: R19.8 - OTH SYMPTOMS AND SIGNS INVOLVING THE DGSTV SYS AND ABDOMEN Status: Acute Priority: Medium Current Visit: Yes (2) Abdominal pain SNOMED Code(s): 08412991 ICD Code: R10.9 - UNSPECIFIED ABDOMINAL PAIN Status: Acute Priority: High Current Visit: Yes Qualifiers: Abdominal location: lower abdomen, unspecified Qualified Code(s): R10.30 - Lower abdominal pain, unspecified (3) Dysmenorrhea SNOMED Code(s): 574689272 ICD Code: N94.6 - DYSMENORRHEA, UNSPECIFIED Status: Acute Priority: Medium Current Visit: No Problem List Initiated/Reviewed/Updated: Yes Orders Last 24hrs: Active Orders 24 hr Category Date Time Status Bedrest [RC] ASDIRECTED Care 01/06/17 02:20 Active Notify Provider Status Change [RC] ASDIRECTED Care 01/06/17 02:28 Active Vital Signs [RC] PER UNIT ROUTINE Care 01/06/17 02:20 Active NPO [Nothing Per Oral Diet] [DIET] Diet 01/06/17 Breakfast Active HYDROmorphone [Dilaudid] Med 01/06/17 02:22 Active 1 mg IVPUSH Q4H PRN Ondansetron [Zofran] Med 01/06/17 02:24 Active 4 mg IVPUSH Q6H PRN Sodium Chloride 0.9% [Normal Saline] 1,000 ml Med 01/06/17 02:30 Active IV ASDIRECTED Medication Orders Hydromorphone HCl (Dilaudid) 1 mg IVPUSH Q4H PRN PRN Reason: Abdominal Pain Last Admin: 01/06/17 07:52 Dose: 1 mg Admin: 01/06/17 04:08 Dose: 1 mg Sodium Chloride (Normal Saline) 1,000 mls @ 999 mls/hr IV ASDIRECTED DAYO Last Admin: 01/06/17 01:02 Dose: 999 mls/hr Sodium Chloride (Normal Saline) 1,000 mls @ 150 mls/hr IV ASDIRECTED DAYO Last Admin: 01/06/17 03:14 Dose: 150 mls/hr Ondansetron HCl (Zofran) 4 mg IVPUSH Q6H PRN PRN Reason: Vomiting Assessment/Plan Comment:: Consult with Dr. Sanchez--he will see patient later this am. Right hydroureter on CT scan. Will treat conservatively for the time being. Do not think this is appendicitis. May be related to current fertility therapy.
[2017-01-06 12:16] VITALS: BP 159/93
--- NOTE | 2017-01-06 12:39 | CONS ---
DATE OF CONSULTATION: DATE OF : 1980 PRIMARY CARE PHYSICIAN: Ana Bello NP REFERRING PHYSICIAN: Dr. Les Zazueta. ADMITTING DIAGNOSES: Abdominal pain, possible acute appendicitis. BRIEF HISTORY: This patient is 36. She is well known to me. She have history of endometriosis and history of dysmenorrhea before and bilateral tubal occlusion. She is status post diagnostic laparoscopy done by me about a year ago. The patient seen in our clinic multiple times for severe abdominal cramps with her period and dysmenorrhea and treated conservatively. At this time, the patient is on IVF medication cycle to start an IVF process. She is admitted through the emergency room complaining of severe abdominal pain. There was an elevated white count of 22,000. There is no shift other than enlarged uterus about 14 to 15-week size with a possible for hydronephrosis in the ureters which maybe related to her stone. There is no evidence of obstruction in the ureter and does not look like there is any acute process in the CAT scan. I went and then did a consultation and taking history from the patient and I was in the process of examining the patient to do pelvic examination. However, the patient and her declines pelvic examination based on the recommendation of their infertility doctors in [place]. I had a phone conversation with her infertility doctor in [place]. She is not objecting to the pelvic exam per se, but she said that the patient was very adamant about not doing the pelvic exam, so she is relented to the patient request. She recommended doing a pelvic ultrasound, which is I am planning to do. Today on her examination, her abdominal examination essentially is benign so the infertility doctor in [place] is going to call the patient and take care of what is needed to be done as far as cancelling the IVF cycle at this time because she is not willing to do ovum retrieval with the elevated white count, which is appropriate. At this time, I think most likely that the patient is having severe menstrual cramping and dysmenorrhea, and maybe some element of urinary tract infection. I think she could be on antibiotic Cipro for 5 days and some pain medication and she could go home and she could be followed in my clinic or she can go call her infertility doctor in the [place] [facility] and go on with their advice. Thank you for consultation. NIURKA / BUCKY /[id number]
--- NOTE | 2017-01-08 12:26 | CT ---
EXAM DATE: 01/06/17 PATIENT'S AGE: 36 Patient: PEYTON DURAN Facility: [facility] [place], [place] Site . Site : 1980 Study: CT Abdomen/Pelvis wo cont [id number] 1:53:01 AM Ordering Physician: Onofre Sofia Final Report: INDICATION: Lower abdominal pain for 2 days TECHNIQUE: CT Abdomen and pelvis without i.v. contrast. Coronal and sagittal reformats were obtained. CONTRAST: None COMPARISON: None FINDINGS: Lower chest: A trace right pleural effusion is present. Liver: Small portion of the liver dome is excluded and cannot be evaluated. Spleen: Unremarkable. Pancreas: Unremarkable. Gallbladder: Unremarkable. Kidney: Mild right hydroureter and renal pelvic caliectasis noted. No obstructing calculi seen. Adrenal: Unremarkable. GI tract: Unremarkable. The appendix is not identified in this patient. Vascular: Unremarkable. Lymph: Unremarkable. Peritoneum: Unremarkable. No pneumoperitoneum is seen. No significant ascites is noted. Pelvis: Severe diffuse enlargement of the uterus is present, measuring 9.8 x 9.5 x 13.7 cm. Soft tissue: Unremarkable. Bones: Unremarkable for age. IMPRESSIONS: 1. Severe diffuse enlargement of the uterus is present, measuring 9.8 x 9.5 x 13.7 cm. Comparison with any prior outside imaging is recommended, especially if the patient has not recently . If these cannot be obtained, follow up outpatient MRI is recommended for further evaluation. 2. Mild right hydroureter and renal pelvic caliectasis noted. No obstructing calculi seen. This may be due to obstruction of the distal ureter by the patient `s enlarged uterus, vesical ureteral reflux, or urinary tract infection. 3. A trace right pleural effusion is present. Dictated by All Baltazar MD @ 01/06/2017 1:59:06 AM Dictated by: All Baltazar MD @ 01/06/2017 01:59:09 (Electronic Signature) Report Signed by Proxy. JABARI
== END 2017-01-06 10:50 | disposition home or self-care (01) ==
LOC: MW.ED 00:46 → MW.MS 02:15
PROVIDERS: ADMIT Surgery; ATTEND Surgery
DX: R10.30 Lower abdominal pain, unspecified (principal); N13.4 Hydroureter; I10 Essential (primary) hypertension; G43.909 Migraine, unspecified, not intractable, without status migrainosus; Z87.440 Personal history of urinary (tract) infections; Z88.8 Allergy status to other drugs, medicaments and biological substances; Z91.048 Other nonmedicinal substance allergy status; Z79.899 Other long term (current) drug therapy; Z90.89 Acquired absence of other organs; Z98.890 Other specified postprocedural states
CPT/HCPCS: 36415; 74176; 80053; 81001; 84703; 85025; 96361; 96374; 96375; 96376; 99285; G0378; J1170; J2405; J7040; 99283

== ENCOUNTER 2017-04-10 19:01 | Emergency (ER) | payer OTHER ==
[2017-04-10] MEDS ORDERED: diphenhydrAMINE 50 MG/ML SDV IM ONE (19:14)
[2017-04-10] MEDS ORDERED: methylPREDNISolone Sodium Succinate 125 MG/2 ML SDV IM ONE (19:14)
--- NOTE | 2017-04-10 19:18 | EDM.PDOC ---
ED HPI GENERAL MEDICAL PROBLEM - General Chief Complaint: Respiratory Problem Stated Complaint: ALLERGIC REACTION Time Seen by Provider: 04/10/17 19:12 - History of Present Illness INITIAL COMMENTS - FREE TEXT/NARRATIVE: HISTORY AND PHYSICAL: History of present illness: Patient is a 36-year-old female presents with possible food allergy she had ate some beef tongue and felt subsequently she had some lip swelling and tightness her significant other has experienced the same after the same food been no vomiting diarrhea she denies shortness of breath dysphagia or dysphonia Review of systems: As per history of present illness and below otherwise all systems reviewed and negative. Past medical history: As per history of present illness and as reviewed below otherwise noncontributory. Surgical history: As per history of present illness and as reviewed below otherwise noncontributory. Social history: No reported history of drug or alcohol abuse. Family history: As per history of present illness and as reviewed below otherwise noncontributory. Physical exam: HEENT: Atraumatic, normocephalic, pupils reactive, negative for conjunctival pallor or scleral icterus, mucous membranes moist, throat clear, neck supple, nontender, trachea midline. Lungs: Clear to auscultation, breath sounds equal bilaterally, chest nontender. Heart: S1S2, regular, negative for clicks, rubs, or JVD. Abdomen: Soft, nondistended, nontender. Negative for masses or hepatosplenomegaly. Negative for costovertebral tenderness. Pelvis: Stable nontender. Genitourinary: Deferred. Rectal: Deferred. Extremities: Atraumatic, negative for cords or calf pain. Neurovascular unremarkable. Neuro: Awake, alert, oriented. Cranial nerves II through XII unremarkable. Cerebellum unremarkable. Motor and sensory unremarkable throughout. Exam nonfocal. Diagnostics: None Therapeutics: Solu-Medrol 125 mg IM Benadryl 50 mg IM Impression: #1 possible food allergy #2 medical screening exam Definitive disposition and diagnosis as appropriate pending reevaluation and review of above. - Related Data Allergies Allergy/AdvReac Type Severity Reaction Status Date / Time paper tape Allergy Rash Uncoded 04/10/17 19:13 vitamin C Allergy Rash Uncoded 04/10/17 19:13 Home Meds: Home Meds Iron 1 tab PO DAILY 07/08/15 [History] Labetalol [Normodyne] 200 mg PO BID 07/08/15 [History] Vit B12/Fa/Pyridoxine HCl/AA15 [Glycotrol] 1 tab PO DAILY 10/06/15 [History] Fertility Injections 03/25/16 [History] Vxl333/FA/Omega3/Dha/Fish Oil [ Gummies] 1 each PO 03/25/16 [History] Cephalexin [Keflex] 500 mg PO QID 5 Days capsule 12/07/16 [Rx] Phenazopyridine HCl [Pyridium] 200 mg PO TID #6 tablet 12/07/16 [Rx] Prasterone (DHEA) [Dhea 25] 25 mg BID 12/07/16 [History] methylPREDNISolone [Medrol] 4 mg PO ASDIRECTED #1 dosepk 12/08/16 [Rx] Past Medical History - Past Health History Medical/Surgical History: Denies Medical/Surgical History HEENT History: Reports: Hard of Hearing Other HEENT History: has glasses, has bilateral hearing aides Cardiovascular History: Reports: Hypertension Respiratory History: Reports: None Gastrointestinal History: Reports: None Genitourinary History: Reports: UTI, Recurrent Other Genitourinary History: URI 2 months ago 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: 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 Other OB/BYN History: Excessive Menses 'heavy', 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 Musculoskeletal History: Reports: None Neurological History: Reports: Migraines Other Neuro History: Some headaches, not chronic Psychiatric History: Reports: None Endocrine/Metabolic History: Reports: None Hematologic History: Reports: None Immunologic History: Reports: None Oncologic (Cancer) History: Reports: None Dermatologic History: Reports: None - Infectious Disease History Infectious Disease History: Reports: Chicken Pox, Measles, Mumps, Rubella - Past Surgical History Head Surgeries/Procedures: Reports: None HEENT Surgical History: Reports: Other (See Below) Other HEENT Surgeries/Procedures: Mastoidectomy Female Surgical History: Reports: Other (See Below) Other Female Surgeries/Procedures: will be starting fertility tx again soon. Hysteroscopy Social & Family History - Family History Family Medical History: Noncontributory - Tobacco Use Smoking Status *Q: Never Smoker Second Hand Smoke Exposure: No - Caffeine Use Caffeine Use: Reports: Coffee, Soda, Tea - Alcohol Use Days Per Week of Alcohol Use: 0 - Recreational Drug Use Recreational Drug Use: No Drug Use in Last 12 Months: No ED ROS GENERAL - Review of Systems Review Of Systems: ROS reveals no pertinent complaints other than HPI. ED EXAM, GENERAL - Physical Exam Exam: See Below (See dictation) Course - Orders/Labs/Meds Meds: Medications Discontinued Medications Generic Name Dose Route Start Last Admin Trade Name Paige PRN Reason Stop Dose Admin Methylprednisolone Sodium Succinate 125 mg 04/10/17 19:14 Solu-Medrol IM 04/10/17 19:15 ONETIME ONE Departure - Departure Time of Disposition: 19:17 Disposition: Home, Self-Care 01 Condition: Good Clinical Impression: Encounter for medical screening examination, Allergic reaction - Discharge Information Additional Instructions: The following information is given to patients seen in the emergency department who are being discharged to home. This information is to outline your options for follow-up care. We provide all patients seen in our emergency department with a follow-up referral. The need for follow-up, as well as the timing and circumstances, are variable depending upon the specifics of your emergency department visit. If you don't have a primary care physician on staff, we will provide you with a referral. We always advise you to contact your personal physician following an emergency department visit to inform them of the circumstance of the visit and for follow-up with them and/or the need for any referrals to a consulting specialist. The emergency department will also refer you to a specialist when appropriate. This referral assures that you have the opportunity for followup care with a specialist. All of these measure are taken in an effort to provide you with optimal care, which includes your followup. Under all circumstances we always encourage you to contact your private physician who remains a resource for coordinating your care. When calling for followup care, please make the office aware that this follow-up is from your recent emergency room visit. If for any reason you are refused follow-up, please contact the [facility] emergency department at and asked to speak to the emergency department charge nurse. Medrol Arashryl as directed follow-up private medical doctor 1-2 days return as needed as discussed]
[2017-04-10 19:22] VITALS: BP 151/85
== END 2017-04-10 20:00 | disposition home or self-care (01) ==
LOC: MW.ED 19:01
DX: T78.1XXA Other adverse food reactions, not elsewhere classified, initial encounter (principal); R22.0 Localized swelling, mass and lump, head; Z13.9 Encounter for screening, unspecified; I10 Essential (primary) hypertension; Z79.899 Other long term (current) drug therapy; Z87.440 Personal history of urinary (tract) infections
CPT/HCPCS: 96372; 99283; J1200; J2930

== ENCOUNTER 2017-09-06 13:49 | Observation (INO) | payer OTHER ==
[2017-09-06] MEDS ORDERED: Sodium Chloride 0.9% 2.5 ML Syringe FLUSH PRN (13:56)
[2017-09-06] MEDS ORDERED: Aspirin 81 MG Tab.Chew PO ONE (13:56)
[2017-09-06] MEDS ORDERED: Sodium Chloride 0.9% 10 ML Syringe FLUSH PRN (13:56)
[2017-09-06] MEDS ORDERED: LORazepam 2 MG/ML SDV IVPUSH ONE (13:56)
[2017-09-06] MEDS ORDERED: Nitroglycerin 0.4 MG Tab.SL SL PRN (13:56)
[2017-09-06] MEDS ORDERED: Sodium Chloride 0.9% 1,000 ML IV ONE (14:23)
[2017-09-06] MEDS ORDERED: Ketorolac 60 MG/2 ML SDV IM ONE (14:33)
[2017-09-06 14:48] LABS: CHLORIDE,CL 96 mmol/L (98-107); SODIUM,NA 136 mmol/L (136-145)
--- NOTE | 2017-09-06 14:56 | CR ---
EXAMINATION: Portable chest radiograph. HISTORY: Shortness of breath. FINDINGS: The trachea is midline. The cardiomediastinal silhouette is within normal limits. Vague opacity proje cting near the right costochondral junction, possibly due to overlap. Otherwise no focal consolidatio n, pleural effusion, or pneumothorax. Osseous structures appear unremarkable. IMPRESSION: 1. Possible subtle infiltrate noted near the first costochondral junction on the right.
[2017-09-06] MEDS ORDERED: Potassium Chloride 20 MEQ Tab.ER PO ONE (14:58)
--- NOTE | 2017-09-06 14:59 | EDM.PDOC ---
ED HPI GENERAL MEDICAL PROBLEM - General Chief Complaint: Respiratory Problem Stated Complaint: SHARP PAIN, NUMBNESS Time Seen by Provider: 09/06/17 13:52 Source of Information: Reports: Patient History Limitations: Reports: No Limitations - History of Present Illness INITIAL COMMENTS - FREE TEXT/NARRATIVE: History of present illness: []30 minutes ago Patient was walking from the building to the hospital and bent down to pick something up and became extremely short of breath with chest tightness and whole body numbness and tingling. She stopped to rest and try to calm down but could not catch her breath. She denies any dizziness, lightheadedness, syncope, sweating, nausea or vomiting. She denies any recent illnesses. Review of systems: As per history of present illness and below otherwise all systems reviewed and negative. Past medical history: As per history of present illness and as reviewed below otherwise noncontributory. Surgical history: As per history of present illness and as reviewed below otherwise noncontributory. Social history: No reported history of drug or alcohol abuse. Family history: As per history of present illness and as reviewed below otherwise noncontributory. 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 Lungs: Clear to auscultation, breath sounds equal bilaterally, chest nontender. Heart: Tachycardic and regular murmurs noted Abdomen: Soft, nondistended, nontender. Negative for masses or hepatosplenomegaly. Negative for costovertebral tenderness. Pelvis: Stable nontender. Genitourinary: Deferred. Rectal: Deferred. Extremities: Atraumatic, negative for cords or calf pain. Neurovascular unremarkable. Neuro: Awake, alert, oriented. Cranial nerves II through XII unremarkable. Cerebellum unremarkable. Motor and sensory unremarkable throughout. Exam nonfocal. Diagnostics: []EKG normal sinus rhythm, ST-T wave changes, no ST elevations chemistry normal except for glucose 225, and potassium of 2.6, CBC normal, troponin negative, diagnosed x-ray shows questionable right infiltrate at first costochondral junction Therapeutics: []Aspirin, nitroglycerin, IV hydration and Ativan given with improvement pain Impression: []Chest pain Plan: []Admit for observation and rule out DE. Definitive disposition and diagnosis as appropriate pending reevaluation and review of above. - Related Data Allergies Allergy/AdvReac Type Severity Reaction Status Date / Time paper tape Allergy Rash Uncoded 09/06/17 13:59 vitamin C Allergy Rash Uncoded 09/06/17 13:59 Home Meds: Home Meds [id number]/FA/Omega3/Dha/Fish Oil [ Gummies] 1 each PO 03/25/16 [History] Hydrochlorothiazide/Losartan [Hyzaar 50-12.5 MG] 12.5 mg PO DAILY 09/06/17 [ History] Past Medical History - Past Health History Medical/Surgical History: Denies Medical/Surgical History HEENT History: Reports: Hard of Hearing Other HEENT History: has glasses, has bilateral hearing aides Cardiovascular History: Reports: Hypertension Respiratory History: Reports: None Gastrointestinal History: Reports: None Genitourinary History: Reports: UTI, Recurrent Other Genitourinary History: URI 2 months ago [employer] History: Reports: None Other OB/BYN History: Excessive Menses 'heavy', 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 Musculoskeletal History: Reports: None Neurological History: Reports: Migraines Other Neuro History: Some headaches, not chronic, facial nerve damage Psychiatric History: Reports: None Endocrine/Metabolic History: Reports: None Hematologic History: Reports: None Immunologic History: Reports: None Oncologic (Cancer) History: Reports: None Dermatologic History: Reports: None - Infectious Disease History Infectious Disease History: Reports: Chicken Pox, Measles, Mumps, Rubella - Past Surgical History Head Surgeries/Procedures: Reports: None HEENT Surgical History: Reports: Other (See Below) Other HEENT Surgeries/Procedures: Mastoidectomy Female Surgical History: Reports: Other (See Below) Other Female Surgeries/Procedures: Hysteroscopy Social & Family History - Family History Family Medical History: Noncontributory - Tobacco Use Smoking Status *Q: Never Smoker - Caffeine Use Caffeine Use: Reports: Coffee - Recreational Drug Use Recreational Drug Use: No ED ROS GENERAL - Review of Systems Review Of Systems: See Below (see history of present illness) ED EXAM, GENERAL - Physical Exam Exam: See Below (See history of present illness) Course - Vital Signs Last Recorded V/S: Last Vital Signs Temp 96.7 F 09/06/17 16:22 Pulse 85 09/06/17 16:22 Resp 14 09/06/17 16:22 BP 123/48 L 09/06/17 16:22 Pulse Ox 100 09/06/17 16:22 - Orders/Labs/Meds Orders: Active Orders 24 hr Category Date Time Status Patient Status [ADT] Stat ADT 09/06/17 15:24 Active Cardiac Monitoring [RC] Q8H Care 09/06/17 13:56 Active Nitroglycerin [Nitrostat] Med 09/06/17 13:56 Active 0.4 mg SL Q5M PRN Sodium Chloride 0.9% [Saline Flush] Med 09/06/17 13:56 Active 10 ml FLUSH ASDIRECTED PRN Sodium Chloride 0.9% [Saline Flush] Med 09/06/17 13:56 Active 2.5 ml FLUSH ASDIRECTED PRN Saline Lock Insert [OM.PC] Stat Oth 09/06/17 13:55 Ordered Medication Orders Albuterol/Ipratropium (Duoneb 3.0-0.5 Mg/3 Ml) 3 ml NEB Q4HRRT PRN PRN Reason: Shortness Of Breath/wheezing Enoxaparin Sodium (Lovenox) 40 mg SUBCUT Q24H DAYO Morphine Sulfate (Morphine) 2 mg IVPUSH Q2H PRN PRN Reason: Pain (severe 7-10) Nitroglycerin (Nitrostat) 0.4 mg SL Q5M PRN PRN Reason: Chest Pain Last Admin: 09/06/17 14:18 Dose: 0.4 mg Ondansetron HCl (Zofran Odt) 4 mg PO Q4H PRN PRN Reason: nausea, able to take PO Potassium Chloride (Klor-Con M20) 40 meq PO DAILY DAYO Senna/Docusate Sodium (Senna Plus) 1 tab PO BID PRN PRN Reason: Constipation Sodium Chloride (Saline Flush) 10 ml FLUSH ASDIRECTED PRN PRN Reason: Keep Vein Open Sodium Chloride (Saline Flush) 2.5 ml FLUSH ASDIRECTED PRN PRN Reason: Keep Vein Open Labs: Laboratory Tests 09/06/17 09/06/17 09/06/17 Range/Units 14:16 14:16 14:16 WBC 8.59 (4.0-11.0) K/uL RBC 4.64 (4.30-5.90) M/uL Hgb 13.6 (12.0-16.0) g/dL Hct 38.9 (36.0-46.0) % MCV 83.8 (80.0-98.0) fL MCH 29.3 (27.0-32.0) pg MCHC 35.0 (31.0-37.0) g/dL RDW Std Deviation 37.0 (28.0-62.0) fl RDW Coeff of Gay 12 (11.0-15.0) % Plt Count 358 (150-400) K/uL MPV 8.60 (7.40-12.00) fL Neut % (Auto) 53.7 (48.0-80.0) % Lymph % (Auto) 41.6 H (16.0-40.0) % [place] % (Auto) 3.8 (0.0-15.0) % Eos % (Auto) 0.6 (0.0-7.0) % Baso % (Auto) 0.3 (0.0-1.5) % Neut # (Auto) 4.6 (1.4-5.7) K/uL Lymph # (Auto) 3.6 H (0.6-2.4) K/uL [place] # (Auto) 0.3 (0.0-0.8) K/uL Eos # (Auto) 0.1 (0.0-0.7) K/uL Baso # (Auto) 0.0 (0.0-0.1) K/uL Nucleated RBC % 0.0 /100WBC Nucleated RBCs # 0 K/uL Sodium 136 (136-145) mmol/L Potassium 2.6 L (3.5-5.1) mmol/L Chloride 96 L (98-107) mmol/L Carbon Dioxide 25.4 (21.0-32.0) mmol/L BUN 18 (7.0-18.0) mg/dL Creatinine 1.2 H (0.6-1.0) mg/dL Est Cr Clr Drug Dosing 45.66 mL/min Estimated GFR (MDRD) 50.3 ml/min Glucose 225 H (74-106) mg/dL Calcium 10.0 (8.5-10.1) mg/dL Total Bilirubin 0.4 (0.2-1.0) mg/dL AST 20 (15-37) IU/L ALT 31 (14-63) IU/L Alkaline Phosphatase 46 (46-116) U/L Troponin I < 0.050 (0.000-0.056) ng/mL C-Reactive Protein 0.00 (0.00-0.90) mg/dL Total Protein 7.9 (6.4-8.2) g/dL Albumin 4.2 (3.4-5.0) g/dL Globulin 3.7 H (2.0-3.5) g/dL Albumin/Globulin Ratio 1.1 L (1.3-2.8) Meds: Medications Generic Name Dose Route Start Last Admin Trade Name Freq PRN Reason Stop Dose Admin Albuterol/Ipratropium 3 ml 09/06/17 17:12 Duoneb 3.0-0.5 Mg/3 Ml NEB Q4HRRT PRN Shortness Of Breath/wheezing Enoxaparin Sodium 40 mg 09/06/17 17:15 Lovenox SUBCUT Q24H DAYO Morphine Sulfate 2 mg 09/06/17 17:12 Morphine IVPUSH Q2H PRN Pain (severe 7-10) Nitroglycerin 0.4 mg 09/06/17 13:56 09/06/17 14:18 Nitrostat SL 0.4 mg Q5M PRN Administration Chest Pain Ondansetron HCl 4 mg 09/06/17 17:12 Zofran Odt PO Q4H PRN nausea, able to take PO Potassium Chloride 40 meq 09/06/17 18:00 Klor-Con M20 PO DAILY DAYO Senna/Docusate Sodium 1 tab 09/06/17 17:12 Senna Plus PO BID PRN Constipation Sodium Chloride 10 ml 09/06/17 13:56 Saline Flush FLUSH ASDIRECTED PRN Keep Vein Open Sodium Chloride 2.5 ml 09/06/17 13:56 Saline Flush FLUSH ASDIRECTED PRN Keep Vein Open Discontinued Medications Generic Name Dose Route Start Last Admin Trade Name Freq PRN Reason Stop Dose Admin Aspirin 324 mg 09/06/17 13:56 09/06/17 14:09 Aspirin PO 09/06/17 13:57 324 mg ONETIME ONE Administration Sodium Chloride 1,000 mls @ 999 mls/hr 09/06/17 14:23 09/06/17 15:00 Normal Saline IV 09/06/17 15:23 30 mls/hr .Bolus ONE Infusion Lorazepam 0.5 mg 09/06/17 13:56 09/06/17 14:20 Ativan IVPUSH 09/06/17 13:57 0.5 mg ONETIME ONE Administration Potassium Chloride 40 meq 09/06/17 14:58 09/06/17 16:47 Klor-Con M20 PO 09/06/17 14:59 40 meq ONETIME ONE Administration Departure - Departure Time of Disposition: 16:20 Disposition: Admitted As Inpatient 65 Condition: Good Clinical Impression: Chest pain Qualifiers: Chest pain type: unspecified Qualified Code(s): R07.9 - Chest pain, unspecified - Discharge Information - My Orders Last 24 Hours: My Active Orders 09/06/17 13:55 Saline Lock Insert [OM.PC] Stat 09/06/17 13:56 Cardiac Monitoring [RC] Q8H Nitroglycerin [Nitrostat] 0.4 mg SL Q5M PRN Sodium Chloride 0.9% [Saline Flush] 10 ml FLUSH ASDIRECTED PRN Sodium Chloride 0.9% [Saline Flush] 2.5 ml FLUSH ASDIRECTED PRN 09/06/17 15:24 Patient Status [ADT] Stat - Assessment/Plan Last 24 Hours: My Active Orders 09/06/17 13:55 Saline Lock Insert [OM.PC] Stat 09/06/17 13:56 Cardiac Monitoring [RC] Q8H Nitroglycerin [Nitrostat] 0.4 mg SL Q5M PRN Sodium Chloride 0.9% [Saline Flush] 10 ml FLUSH ASDIRECTED PRN Sodium Chloride 0.9% [Saline Flush] 2.5 ml FLUSH ASDIRECTED PRN 09/06/17 15:24 Patient Status [ADT] Stat
[2017-09-06] MEDS ORDERED: Albuterol/Ipratropium 3.0-0.5 MG/3 ML Neb Soln NEB PRN (17:12)
[2017-09-06] MEDS ORDERED: Morphine 2 MG/ML Syringe IVPUSH PRN (17:12)
[2017-09-06] MEDS ORDERED: Ondansetron 4 MG Tab.DIS PO PRN (17:12)
[2017-09-06] MEDS ORDERED: Enoxaparin 40 MG/0.4 ML Syringe SUBCUT SCH (17:15)
[2017-09-06] MEDS ORDERED: Potassium Chloride 20 MEQ Tab.ER PO SCH (18:00)
[2017-09-06] MEDS ORDERED: LORazepam 2 MG/ML SDV IVPUSH PRN (19:21)
[2017-09-06] MEDS ORDERED: Iopamidol 755 MG/ML 500 ML Multipack Bottle IVPUSH STA (20:11)
[2017-09-06] MEDS ORDERED: Magnesium Sulfate/Water 2 GM in Premix Bag 1 BAG IV ONE (21:25)
[2017-09-06] MEDS: Potassium Chloride 20 MEQ Tab.ER PO SCH (22:28)
[2017-09-06] MEDS: Lactated Ringers 1,000 ML IV SCH (22:34)
--- NOTE | 2017-09-06 23:15 | PCM.SN ---
- Free Text/Narrative Note: [id number]
--- NOTE | 2017-09-07 00:47 | HP ---
DATE OF : 1980 PRIMARY CARE PHYSICIAN: None PCP CHIEF COMPLAINT: Chest tightness in the middle of the chest for about 15 minutes associated with shortness of breath and tingling in the arm and feet. 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 The intensity of the tingling was moderate to severe. She had tingling before during the time when she was having treatment for in-vitro , and it was mostly on the left leg, and her doctor told her that probably the uterus is pressing down on a nerve on the left leg. She had adenomyosis and endometriosis during her lifetime, and she has hypertension since age 18 , currently on treatment with Losartan -HCTZ 100/25 mg po daily . During the time when she had numbness and tingling in the fingers, she also had profuse sweating, and she tried to lie down, but there was no relief. Her heart rate started beating fast, and it was getting worse, and she needed to come to the emergency room. In the ER after she received aspirin and nitroglycerin as per the patient, that tremor in the hand and the tingling and numbness subsided and also the chest pain. She thinks that her symptoms lasted for about 1 hour with 30 minutes before she arrived to the hospital. Currently, she has left hand tingling that comes and goes. She used to be on a weight loss medication which was a medication that contained green tea , and some multivitamins to lose weight. The patient states that after she had a hysterectomy, she was very sad / low mood for about 3 months.Patient c/o hot flushes and profuse sweating since she had hysterectomy. ALLERGIES: She states she is allergic to vitamin C, she develops a rash. PAST SURGICAL HISTORY: She had hysterectomy and mastectomy on the right side and hysteroscopy with polypectomy. SOCIAL HISTORY: She never smoked. No alcohol use. No drug use. FAMILY HISTORY: Her father had multiple MIs and stroke, and [place] was before 55. LABORATORY DATA: At admission, the patient's WBC 8.59, hemoglobin 13.6, hematocrit 38.9, and platelet count is 358. D-dimer was 0.23. Sodium 136, potassium 2.6, chloride 96, carbon dioxide 25.4, BUN 18, creatinine 1.2. Estimated creatinine clearance is 45. Glucose was 255. Calcium 10, phosphorus 3.3, magnesium 1.5, total bilirubin 0.4, AST 20, ALT 31, alkaline phosphatase 46, troponin less than 0.05. C-reactive protein was 0. BNP less than 15, total protein 7.9, albumin 4.2, globulin 2.7, B12 of 716, TSH 1.49. Urine color was yellow, appearance clear, pH 6.5, specific gravity less than 1.005, protein negative, glucose negative, ketones negative, occult blood negative, nitrite negative, bilirubin negative, urobilinogen 0.2, leukocyte esterase negative, rbc between 0 and 1, wbc between 0 and 1, epithelial cells rare, bacteria rare. PHYSICAL EXAMINATION: VITAL SIGNS: At admission, her temperature was 96.7, pulse rate 121, blood pressure 120/69, respiratory rate 24, oxygen saturation by pulse oximetry 98%. HEENT: The patient has left facial droop. Head is atraumatic, normocephalic. Pupils equally reactive to light. NECK: Supple. No thyromegaly. No lymphadenopathy. HEART: S1 and S2. Regular rhythm and rate. At the moment I examined the patient, she was not tachycardic. LUNGS: Clear to auscultation bilaterally. ABDOMEN: Soft, nontender, positive bowel sounds. EXTREMITIES: No edema. NEUROLOGIC: Deep tendon reflexes maybe mildly decreased. DIAGNOSTIC STUDIES: Her EKG done in the ER showed sinus tachycardia at 127, DC interval 124, QRS 82, QT 302, QTc 440 . Repeat EKG later on was sinus rate at 74, abnormal R progression, early transition QRS more in V2, DC 141, QRSd 91, QTc 460. CTPA - negative for pe CXR - NEGATIVE FOR ACUTE DISEASE ASSESSMENT AND PLAN: Chest tightness, rule out acute coronary syndrome. We will admit the patient to Medical Telemetry. We will follow up 3 sets of cardiac enzyme. We will order a lipid profile and hemoglobin A1c with morning labs. For the bilateral lower extremity tingling and dyspnea, likely anxiety, differential diagnosis is anxiety and panic attacks versus idiopathic neuropathy . We will give the patient Ativan 2 mg IV q.6 hours p.r.n. for anxiety and agitation, and we will follow up CTPA of the chest. The patient had CT pulmonary angiogram as per Cardiology recommendation, which was negative. For hypokalemia secondary to sweating, we will supplement potassium with potassium chloride 40 mEq was given twice, and another dose was ordered in the evening, and we will follow up potassium level , D/c HCTZ . For hypomagnesemia, we will supplement magnesium. The patient also has hot flashes, and she needs estrogen replacement, and she sweats profusely. DVT prophylaxis is not needed. Lovenox 40 mg subcutaneous q.24 hours. ANTOPET / MODL /[id number] Discharge summary Patient admitted to telemetry , had cardiology consult , recommended CTPA even though D dimer was negative as he said he has high suspicion of PE . She had serial troponins that were negative. Her Hb A1c was 6.8 and she was started on Metformin ER 500 mg po with diner , and had pre school teacher Consult. Diet was changed to diabetic diet. Her Hctz was d/c and she was discharged home only with Losartan 100 mg po daily, f/up bp with PCp Lipid profile showed Hypertriglyceridemia and she was started on Gemfibrozil 600 mg po BId , f/up lipid profile as outpatient. For chest pressure and history of HTN , St changes on the EKG at admission , the medical assistant supervisor recommended stress test as outpatient, f/up appointment with Cardiology For hot flushes she was started on estradiol 0.05 mg transdermal patch q 7 days , velafaxin 37.5 mg po daily, f/up with the ob group underwriter For tinglings , dyspnea she was given Xanax 0.5 mg po tid prn for anxiety attacks and f/up appointment with Neurology , R/o neuropathy. B12 and Tsh were normal. Patient was in the hospital less than 24h MTDD
[2017-09-07 05:52] LABS: CHLORIDE,CL 104 mmol/L (98-107); SODIUM,NA 138 mmol/L (136-145)
--- NOTE | 2017-09-07 09:06 | CONS ---
DATE OF CONSULTATION: DATE OF : 1980 PRIMARY CARE PHYSICIAN: None PCP This is a 37-year-old female who has a past medical history of hormonal treatment of in-vitro , status post hysterectomy, history of cholesteatoma of the right mastoid, status post surgery with a facial nerve injury, presented to the emergency room due to the chest tightness. 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 She also started feeling dizzy as well as well as heart racing. She thought it might have been SVT. She tried bearing down, however, she is still feeling those palpitation and chest pressure. This was the reason she came into the emergency room. She also noted that she feels short of breath even just talking. No sweating. No nausea, no vomiting. The chest pain lasted for 15 minute. She was given nitroglycerin 4 tabs as well as nitroglycerin sublingually and was negative. EKG shows sinus tachycardia with ST abnormalities. She has a history of hypertension, on Cozaar, hydrochlorothiazide. She was on labetalol in the past, however, it was not very well controlled with labetalol. She denied history of diabetes, hyperlipidemia. Her father had a history of multiple ID before the age of 50s. She denied history of heart attack, heart failure, or having the stresses in the past. When she was experiencing the chest pressure at work the day of admission, she did not do the vital signs. ALLERGIES: She is allergic to vitamin C. PAST SURGICAL HISTORY: Hysterectomy, mastectomy. SOCIAL HISTORY: She denies smoking, drug use, or alcohol consumption. FAMILY HISTORY: Father had multiple ID and stroke at age of 50s. PHYSICAL EXAMINATION: VITAL SIGNS: Initial blood pressure is 120/69, when I saw her, the blood pressure was 123/48, and heart rate initially 121, sinus tachycardia, but when I saw her, it had come down to 74, temperature 36.3, respirations 14 to 16, O2 saturation 100% on room air. HEENT: No pallor or jaundice. No JVD. HEART: Normal S1 and S2. No murmur. Regular rate and rhythm. LUNGS: Clear. No wheezing. Good equal breath sounds bilaterally. ABDOMEN: Soft, nontender. Bowel sounds are present. No hepatosplenomegaly. No tenderness, no rebound tenderness. EXTREMITIES: Legs, no edema. INVESTIGATION: CBC showed WBC 8, hematocrit of 38, hemoglobin of 13, platelet of 358. D-dimer was negative. Sodium 136, potassium 2.6, chloride 96, bicarb 25, BUN 18, creatinine 1.2. A1c 6.8. BNP less than 15. Troponin was negative x1. TSH was normal. Urinalysis negative. Initial EKG shows sinus tachycardia with diffuse ST abnormality in II, III, aVF, as well as V3 to V6. QT interval is 440, TX interval 124, heart rate of 120, QRS duration 80. The following EKG at 6:00 p.m. on the same day, September 06, 2017, shows sinus rhythm, heart rate of 74, TX interval 141, QRS duration 91, QTc interval 460. There was some ST abnormality in lead III. Chest x-ray also possible subtle infiltrate noted near the first costochondral junction on the right. ASSESSMENT AND PLAN: This is a 37-year-old female, who has a history of hypertension, history of cholesteatoma on the right ear, hysterectomy, family history of ID, premature coronary artery disease, presented to the hospital with chest pressure, palpitation, sinus tachycardia with ST abnormalities. She is currently being admitted for ACS rule out and cardiac enzymes need to be repeated to make sure there is no elevation in troponin. EKG also need to be repeated. We should also rule out for PE. Recommended to do CT angiograms, echocardiogram as well. Check her lipid panel and A1c, she seemed to have diabetes so far. Recommended to check high-sensitivity CRP as well. She will probably need a stress test, but this can be done as an outpatient. ASHIA LAWLER /[id number]
[2017-09-07] MEDS: Lactated Ringers 1,000 ML IV SCH (10:06)
[2017-09-07] MEDS: Potassium Chloride 20 MEQ Tab.ER PO SCH (10:06)
[2017-09-07] MEDS ORDERED: LORazepam 2 MG/ML SDV IVPUSH PRN (10:11)
[2017-09-07] MEDS ORDERED: Venlafaxine 37.5 MG Cap.ER PO SCH (10:15)
[2017-09-07 11:54] VITALS: BP 108/55
[2017-09-07] MEDS ORDERED: ALPRAZolam 0.5 MG Tab PO SCH (14:00)
--- NOTE | 2017-09-07 15:20 | CT ---
EXAM DATE: 09/06/17 PATIENT'S AGE: 37 Patient: PEYTON DURAN Facility: [place], [place] Site . Site : 1980 Study: CT Chest Angio [id number] 8:14:13 PM Ordering Physician: Nia Coleman Final Report: INDICATION: "Rule out PE". TECHNIQUE: Contrast-enhanced CT of the chest performed using the pulmonary embolism protocol. 50 cc nonionic Isovue-370 administered without complication. FINDINGS: There is good opacification of the pulmonary arterial tree. No filling defects identified to indicate acute pulmonary emboli. No thoracic aortic aneurysm or dissection. Both lungs are expanded and clear without pneumothoraces, nodules, or infiltrates. There are no pleural or pericardial effusions. No rib or sternal fracture identified. The included portions of the thyroid gland, both breasts, and upper abdomen are within normal limits. Normal adrenal glands. No splenomegaly. The visualized portions of the kidneys are within normal limits. IMPRESSION: Negative contrast-enhanced chest CT. There is no evidence for acute pulmonary emboli. No acute cardiopulmonary process identified. The included upper abdomen is within normal limits. Please note that all CT scans at this facility use dose modulation, iterative reconstruction, and/or weight-based dosing when appropriate to reduce radiation dose to as low as reasonably achievable. Dictated by Emmanuel Ascencio MD @ Sep 06 2017 8:24PM (Electronic Signature) Report Signed by Proxy. JABARI
[2017-09-07] MEDS ORDERED: Gemfibrozil 600 MG Tab PO SCH (17:00)
[2017-09-07] MEDS ORDERED: metFORMIN 500 MG Tab.ER PO SCH (17:30)
--- NOTE | 2017-09-10 19:57 | ECHO ---
The echocardiogram report can be seen in this patient's EMR (Electronic Medical Record) in the Reports section. The echocardiogram report has been scanned into PACS and can be seen there as well. JABARI
== END 2017-09-07 14:35 | disposition home or self-care (01) ==
LOC: MW.ED 13:49 → MW.MS 15:55
PROVIDERS: ADMIT Internal Medicine; ATTEND Internal Medicine
DX: R07.89 Other chest pain (principal); I10 Essential (primary) hypertension; E87.6 Hypokalemia; E83.42 Hypomagnesemia; G43.909 Migraine, unspecified, not intractable, without status migrainosus; Z79.899 Other long term (current) drug therapy; Z88.8 Allergy status to other drugs, medicaments and biological substances; Z91.048 Other nonmedicinal substance allergy status; Z97.4 Presence of external hearing-aid
CPT/HCPCS: 36415; 71045; 71275; 80053; 80061; 81001; 82607; 82962; 83036; 83735; 83880; 84100; 84443; 84484; 85025; 85379; 86140; 93005; 93306; 96361; 96374; 99285; A9270; J1650; J2060; J3475; J7040; J7120; Q9967

== ENCOUNTER 2018-12-19 16:41 | Emergency (ER) | payer OTHER ==
--- NOTE | 2018-12-19 16:56 | EDM.PDOC ---
ED HPI GENERAL MEDICAL PROBLEM - General Chief Complaint: Allergic Reaction Stated Complaint: ALLERGIC REACTION Time Seen by Provider: 12/19/18 16:41 Source of Information: Reports: Patient History Limitations: Reports: No Limitations - History of Present Illness INITIAL COMMENTS - FREE TEXT/NARRATIVE: History of present illness: []Pt awoke this morning with mild itching on face and after eating a chicken and rice dish she started having worsening itching spreading to her chest and swelling of her hands. This is how previous allergic reactions have presented in the past. Pt took benadryl this morning but no meds since.She denies any SOB , vocal changes but feels mild lightheadedness. Review of systems: As per history of present illness and below otherwise all systems reviewed and negative. Past medical history: As per history of present illness and as reviewed below otherwise noncontributory. Surgical history: As per history of present illness and as reviewed below otherwise noncontributory. Social history: No reported history of drug or alcohol abuse. Family history: As per history of present illness and as reviewed below otherwise noncontributory. Physical exam: General: Well developed, well nourished in NAD HEENT: Atraumatic, normocephalic, pupils reactive, negative for conjunctival pallor or scleral icterus, mucous membranes moist, throat clear, neck supple, nontender, trachea midline. no stridor Lungs: Clear to auscultation, breath sounds equal bilaterally, chest nontender. Heart: S1S2, regular, negative for clicks, rubs, or JVD. Abdomen: NABS, Soft, nondistended, nontender. Negative for masses or hepatosplenomegaly. Negative for costovertebral tenderness. Pelvis: Stable nontender. Genitourinary: Deferred. Rectal: Deferred. Extremities: Atraumatic, negative for cords or calf pain. Neurovascular unremarkable. Neuro: Awake, alert, oriented. Pt has Mcgee's palsy. Cerebellum unremarkable. Motor and sensory unremarkable throughout. Exam nonfocal. Skin: faint rash on chest, warm and dry Diagnostics: BG=80 Therapeutics: benadry, pepcid and prednisone ED Course: stable Impression: allergic reaction Prescriptions: prednisone x 5 d Plan: continue, prednisone burst, benadry and pepcid, monitor sugars, Definitive disposition and diagnosis as appropriate pending reevaluation and review of above. - Related Data Allergies Allergy/AdvReac Type Severity Reaction Status Date / Time paper tape Allergy Rash Uncoded 12/19/18 16:51 vitamin C Allergy Rash Uncoded 12/19/18 16:51 Home Meds: Home Meds Losartan [Cozaar] 100 mg PO DAILY #90 tab 09/07/17 [Rx] Fenofibrate 1 tab PO DAILY 12/19/18 [History] metFORMIN [Glucophage XR] 500 mg PO BID 12/19/18 [History] predniSONE [Prednisone] 20 mg PO DAILY #5 tablet 12/19/18 [Rx] Past Medical History - Past Health History Medical/Surgical History: Denies Medical/Surgical History HEENT History: Reports: Hard of Hearing Other HEENT History: has glasses, has bilateral hearing aides Cardiovascular History: Reports: Hypertension Respiratory History: Reports: None Gastrointestinal History: Reports: None Genitourinary History: Reports: UTI, Recurrent Other Genitourinary History: URI 2 months ago DIRECTOR [employer] History: Reports: None Other [employer] History: Excessive Menses 'heavy', 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 Musculoskeletal History: Reports: None Neurological History: Reports: Migraines Other Neuro History: Some headaches, not chronic, facial nerve damage Psychiatric History: Reports: None Endocrine/Metabolic History: Reports: Diabetes, Type II Hematologic History: Reports: None Immunologic History: Reports: None Oncologic (Cancer) History: Reports: None Dermatologic History: Reports: None - Infectious Disease History Infectious Disease History: Reports: Chicken Pox, Measles, Mumps, Rubella - Past Surgical History Head Surgeries/Procedures: Reports: None HEENT Surgical History: Reports: Other (See Below) Other HEENT Surgeries/Procedures: Mastoidectomy Female Surgical History: Reports: Hysterectomy, Other (See Below) Other Female Surgeries/Procedures: Hysteroscopy Social & Family History - Family History Family Medical History: Noncontributory - Caffeine Use Caffeine Use: Reports: Coffee ED ROS ALLERGIC REACTION - Review of Systems Review Of Systems: See Below ED EXAM GENERAL NO PERIP PULSE - Physical Exam Exam: See Below Course - Vital Signs Last Recorded V/S: Last Vital Signs Temp 96.4 F 12/19/18 16:47 Pulse 81 12/19/18 16:47 Resp 18 12/19/18 16:47 BP 142/88 H 12/19/18 16:47 Pulse Ox 100 12/19/18 16:47 - Orders/Labs/Meds Orders: Active Orders 24 hr Category Date Time Status Blood Glucose Check, Bedside [RC] ONETIME Care 12/19/18 17:01 Active Sodium Chloride 0.9% [Saline Flush] Med 12/19/18 16:57 Active 10 ml FLUSH ASDIRECTED PRN Medication Orders Sodium Chloride (Saline Flush) 10 ml FLUSH ASDIRECTED PRN PRN Reason: Keep Vein Open Labs: Laboratory Tests 12/19/18 Range/Units 17:03 POC Glucose 80 (60-110) mg/dL Meds: Medications Generic Name Dose Route Start Last Admin Trade Name Freq PRN Reason Stop Dose Admin Sodium Chloride 10 ml 12/19/18 16:57 Saline Flush FLUSH ASDIRECTED PRN Keep Vein Open Discontinued Medications Generic Name Dose Route Start Last Admin Trade Name Freq PRN Reason Stop Dose Admin Diphenhydramine HCl 25 mg 12/19/18 16:57 12/19/18 17:02 Benadryl PO 12/19/18 16:58 25 mg ONETIME ONE Administration Famotidine 20 mg 12/19/18 16:58 12/19/18 17:05 Pepcid PO 12/19/18 16:59 20 mg ONETIME ONE Administration Lorazepam 1 mg 12/19/18 17:26 12/19/18 17:33 Ativan PO 12/19/18 17:27 1 mg ONETIME ONE Administration Prednisone 60 mg 12/19/18 16:57 12/19/18 17:02 Prednisone PO 12/19/18 16:58 60 mg ONETIME ONE Administration Departure - Departure Time of Disposition: 18:04 Disposition: Home, Self-Care 01 Condition: Good Clinical Impression: Allergic reaction Qualifiers: Encounter type: initial encounter Qualified Code(s): T78.40XA - Allergy, unspecified, initial encounter - Discharge Information *PRESCRIPTION DRUG MONITORING PROGRAM REVIEWED*: No *COPY OF PRESCRIPTION DRUG MONITORING REPORT IN PATIENT MAG: No Prescriptions: predniSONE [Prednisone] 20 mg PO DAILY #5 tablet Referrals: Seth Nuñze MD [Primary Care Provider] - Additional Instructions: The following information is given to patients seen in the emergency department who are being discharged to home. This information is to outline your options for follow-up care. We provide all patients seen in our emergency department with a follow-up referral. The need for follow-up, as well as the timing and circumstances, are variable depending upon the specifics of your emergency department visit. If you don't have a primary care physician on staff, we will provide you with a referral. We always advise you to contact your personal physician following an emergency department visit to inform them of the circumstance of the visit and for follow-up with them and/or the need for any referrals to a consulting specialist. The emergency department will also refer you to a specialist when appropriate. This referral assures that you have the opportunity for follow-up care with a specialist. All of these measure are taken in an effort to provide you with optimal care, which includes your follow-up. Under all circumstances we always encourage you to contact your private physician who remains a resource for coordinating your care. When calling for follow-up care, please make the office aware that this follow-up is from your recent emergency room visit. If for any reason you are refused follow-up, please contact the [facility] Emergency Department at and asked to speak to the emergency department charge nurse. Take meds as directed, follow up with your primary care physician, return to ER if symptoms worsen or change. [facility] [address] [place] [address] - My Orders Last 24 Hours: My Active Orders 12/19/18 16:57 Sodium Chloride 0.9% [Saline Flush] 10 ml FLUSH ASDIRECTED PRN 12/19/18 17:01 Blood Glucose Check, Bedside [RC] ONETIME - Assessment/Plan Last 24 Hours: My Active Orders 12/19/18 16:57 Sodium Chloride 0.9% [Saline Flush] 10 ml FLUSH ASDIRECTED PRN 12/19/18 17:01 Blood Glucose Check, Bedside [RC] ONETIME
[2018-12-19] MEDS ORDERED: diphenhydrAMINE 25 MG Cap PO ONE (16:57)
[2018-12-19] MEDS ORDERED: predniSONE 20 MG Tab PO ONE (16:57)
[2018-12-19] MEDS ORDERED: Sodium Chloride 0.9% 2.5 ML Syringe FLUSH PRN (16:57)
[2018-12-19] MEDS ORDERED: Sodium Chloride 0.9% 10 ML Syringe FLUSH PRN (16:57)
[2018-12-19] MEDS ORDERED: Famotidine 20 MG Tab PO ONE (16:58)
[2018-12-19] MEDS ORDERED: LORazepam 1 MG Tab PO ONE (17:26)
[2018-12-19 18:18] VITALS: BP 125/82; PULSE 83
== END 2018-12-19 18:17 | disposition home or self-care (01) ==
LOC: MW.ED 16:41
DX: T78.40XA Allergy, unspecified, initial encounter (principal); I10 Essential (primary) hypertension; E11.9 Type 2 diabetes mellitus without complications; Z91.048 Other nonmedicinal substance allergy status; Z88.8 Allergy status to other drugs, medicaments and biological substances; Z79.899 Other long term (current) drug therapy; Z79.84 Long term (current) use of oral hypoglycemic drugs
CPT/HCPCS: 82962; 93005; 99283; A9270

== ENCOUNTER 2019-04-03 12:02 | Emergency (ER) | payer OTHER ==
--- NOTE | 2019-04-03 13:42 | CT ---
Head CT Technique: Multiple axial sections through the brain were obtained. Study has only now been made available for interpretation. Comparison: Previous brain MRI of 11/21/18. Findings: Ventricles along with basal cisterns and sulci over convexities are within normal limits for the patient's age. No abnormal parenchymal densities are seen. No evidence of intracranial hemorrhage. No midline shift or mass effect is seen. Bone window settings were reviewed which shows no acute calvarial abnormality. Prior right sided mastoidectomy is noted. No acute paranasal sinus findings are seen. Impression: 1. Previous right mastoid surgery. 2. No acute intracranial abnormality is appreciated. Diagnostic code #2 This report was dictated in Mountain Standard Time
--- NOTE | 2019-04-03 14:00 | EDM.PDOC ---
ED HPI GENERAL MEDICAL PROBLEM - General Chief Complaint: Neuro Symptoms/Deficits Stated Complaint: LFT ARM PAIN Time Seen by Provider: 04/03/19 12:51 - History of Present Illness INITIAL COMMENTS - FREE TEXT/NARRATIVE: Patient woke up with left-sided neck pain radiating to left shoulder left arm not associated with weakness or numbness. 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 It is reproducible with flexion extension axial loading and lateral rotation of the neck. Patient denies any injury no previous history of stroke. Denies any distal numbness weakness. Accounting for baseline right sided facial droop. Patient's initial NIH stroke scale was 0. Patient woke up with the symptoms onset of symptoms unknown. - Related Data Allergies Allergy/AdvReac Type Severity Reaction Status Date / Time paper tape Allergy Rash Uncoded 04/03/19 12:15 vitamin C Allergy Rash Uncoded 04/03/19 12:15 Home Meds: Home Meds Losartan [Cozaar] 100 mg PO DAILY #90 tab 09/07/17 [Rx] Fenofibrate 1 tab PO DAILY 12/19/18 [History] metFORMIN [Glucophage XR] 500 mg PO BID 12/19/18 [History] predniSONE [Prednisone] 20 mg PO DAILY #5 tablet 12/19/18 [Rx] Gabapentin [Neurontin] 300 mg PO TID #7 cap 04/03/19 [Rx] predniSONE [Prednisone] 50 mg PO DAILY 5 Days #5 tablet 04/03/19 [Rx] Past Medical History - Past Health History Medical/Surgical History: Denies Medical/Surgical History HEENT History: Reports: Hard of Hearing Other HEENT History: has glasses, has bilateral hearing aides Cardiovascular History: Reports: Hypertension Respiratory History: Reports: None Gastrointestinal History: Reports: None Genitourinary History: Reports: UTI, Recurrent Other Genitourinary History: URI 2 months ago [employer] History: Reports: None Other [employer] History: Excessive Menses 'heavy', 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 Musculoskeletal History: Reports: None Neurological History: Reports: Migraines Other Neuro History: Some headaches, not chronic, facial nerve damage Psychiatric History: Reports: None Endocrine/Metabolic History: Reports: Diabetes, Type II Hematologic History: Reports: None Immunologic History: Reports: None Oncologic (Cancer) History: Reports: None Dermatologic History: Reports: None - Infectious Disease History Infectious Disease History: Reports: None - Past Surgical History Head Surgeries/Procedures: Reports: None HEENT Surgical History: Reports: Other (See Below) Other HEENT Surgeries/Procedures: Mastoidectomy Female Surgical History: Reports: Hysterectomy, Other (See Below) Other Female Surgeries/Procedures: Hysteroscopy Social & Family History - Family History Family Medical History: Noncontributory - Tobacco Use Smoking Status *Q: Never Smoker Second Hand Smoke Exposure: No - Caffeine Use Caffeine Use: Reports: None - Recreational Drug Use Recreational Drug Use: No ED ROS GENERAL - Review of Systems Review Of Systems: Comprehensive ROS is negative, except as noted in HPI. Constitutional: Reports: No Symptoms HEENT: Reports: No Symptoms Respiratory: Reports: No Symptoms Cardiovascular: Reports: No Symptoms GI/Abdominal: Reports: No Symptoms Musculoskeletal: Reports: No Symptoms Neurological: Denies: Headache, Numbness, Paresthesia, Trouble Speaking, Difficulty Walking, Weakness, Change in Speech, Gait Disturbance Psychiatric: Reports: No Symptoms Hematologic/Lymphatic: Reports: No Symptoms Immunologic: Reports: No Symptoms ED EXAM, NEURO - Physical Exam Exam: See Below Exam Limited By: No Limitations General Appearance: Alert, WD/WN, No Apparent Distress Head Exam: Atraumatic, Other (Asymmetry of right frontalis facialis muscle, right facial drooping) Neck: Tender Lateral, Other (Tender left lateral paracervical region on palpation and rotation reproducing pain to left posterior scapula and left arm) Respiratory/Chest: No Respiratory Distress, Lungs Clear, Normal Breath Sounds, No Accessory Muscle Use, Chest Non-Tender Cardiovascular: Normal Peripheral Pulses, Regular Rate, Rhythm, No Edema, No Gallop, No JVD, No Murmur, No Rub GI/Abdominal: Normal Bowel Sounds, Soft, Non-Tender, No Organomegaly, No Distention, No Abnormal Bruit, No Mass Neurological: Alert, Normal Mood/Affect, Normal Plantar Flexion, Normal Gait, Normal Reflexes, No Motor/Sensory Deficits, Oriented x 3, Abnormal Gait, Other ( NIH stroke scale 0 as stated above, asymmetry of right frontalis facialis muscle. Baseline for this patient). No: Ataxia Back Exam: Normal Inspection, Full Range of Motion, NT Extremities: Normal Inspection, Normal Range of Motion, Non-Tender, No Pedal Edema, Normal Capillary Refill Psychiatric: Normal Affect, Normal Mood Skin Exam: Warm, Dry, Intact, Normal Color, No Rash Course - Vital Signs Last Recorded V/S: Last Vital Signs Temp 97.9 F 04/03/19 12:16 Pulse 79 04/03/19 13:20 Resp 16 04/03/19 13:20 BP 140/87 04/03/19 13:20 Pulse Ox 97 04/03/19 13:20 Departure - Departure Time of Disposition: 14:07 Disposition: Home, Self-Care 01 Condition: Good Clinical Impression: Cervical radiculopathy - Discharge Information Instructions: Cervical Radiculopathy, [id number] Referrals: Seth Nuñez MD [Primary Care Provider] - Forms: ED Department Discharge Sepsis Event Note - Evaluation Sepsis Screening Result: No Definite Risk - Focused Exam Vital Signs: Vital Signs Temp Pulse Resp BP Pulse Ox 04/03/19 13:20 79 16 140/87 97 04/03/19 12:40 70 15 153/97 H 99 04/03/19 12:16 97.9 F 77 16 167/82 H 99 Date Exam was Performed: 04/03/19 Time Exam was Performed: 14:07
[2019-04-03 14:51] VITALS: PULSE 77
[2019-04-03 14:52] VITALS: BP 145/91
== END 2019-04-03 14:52 | disposition home or self-care (01) ==
LOC: MW.ED 12:02
DX: M54.12 Radiculopathy, cervical region (principal); I10 Essential (primary) hypertension; E11.9 Type 2 diabetes mellitus without complications; Z79.84 Long term (current) use of oral hypoglycemic drugs; Z91.09 Other allergy status, other than to drugs and biological substances; Z91.018 Allergy to other foods
CPT/HCPCS: 70450; 70450-26; 99283-25

== ENCOUNTER 2019-08-25 08:58 | Observation (INO) | payer OTHER ==
[2019-08-25] MEDS ORDERED: Sodium Chloride 0.9% 2.5 ML Syringe FLUSH PRN (09:10)
[2019-08-25] MEDS ORDERED: Sodium Chloride 0.9% 10 ML Syringe FLUSH PRN (09:10)
[2019-08-25] MEDS ORDERED: Sodium Chloride 0.9% 10 ML SDV IV PRN (09:10)
[2019-08-25] MEDS ORDERED: Sodium Chloride 0.9% 500 ML IV SCH (09:15)
--- NOTE | 2019-08-25 09:15 | EDM.PDOC ---
ED HPI GENERAL MEDICAL PROBLEM - General Chief Complaint: Neuro Symptoms/Deficits Stated Complaint: NUMBNESS AND TINGLING IN ARMS Time Seen by Provider: 08/25/19 09:09 - History of Present Illness INITIAL COMMENTS - FREE TEXT/NARRATIVE: History of present illness: 38-year-old female presenting with left arm numbness and a pinching sensation in her left chest. 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 She has not had any difficulty holding things or moving her arms or legs nor any difficulty speaking. She has chronic right-sided facial weakness that has not changed. She does report some numbness in the left face and arm. She was concerned because her father had a stroke at a young age. She has diabetes and hypertension. She did take her medications this morning. Review of systems: As per history of present illness and below otherwise all systems reviewed and negative. Past medical history: As per history of present illness and as reviewed below otherwise noncontributory. Surgical history: As per history of present illness and as reviewed below otherwise noncontributory. Social history: No reported history of drug or alcohol abuse. Family history: As per history of present illness and as reviewed below otherwise noncontributory. Physical exam: GEN: no acute distress, well appearing HEENT: Atraumatic, normocephalic, mucous membranes moist, facial droop which patient reports is chronic. Neck: supple, nontender, trachea midline. Lungs: No respiratory distress. Heart: RRR Abdomen: Soft, nondistended, nontender. Back: nontender Extremities: Atraumatic. Neurovascularly intact. Neuro: Awake, alert, oriented. Mild left facial numbness over the full left face, mild left arm numbness. Intact motor throughout all 4 extremities. Remainder of his of extremities have normal sensation. The patient does have a right-sided facial droop which she reports is chronic. No other facial droop. No ataxia. NIH score total 2, however facial droop is chronic, therefore new score changed is an NIH of 1. Skin: warm, dry, no lesions Diagnostics: CT brain, CTA head and neck. Therapeutics: [] MDM: With stroke like symptoms, also left-sided chest pain. History of diabetes and hypertension. Mild numbness on examination. NIH 1. CT brain noncontrast and CT angio head and neck with no acute findings, no large vessel occlusions. Symptoms actually resolved on reassessment after patient had CT scans. Suspect potential TIA as the patient does have multiple cardiovascular/stroke risk factors. The chest pain was also improved/resolved on reassessment. EKG showed no acute ischemia. Troponin was negative. She was given a dose of aspirin. Recommended admission. She agrees with the plan. Impression: [] Plan: [] Definitive disposition and diagnosis as appropriate pending reevaluation and review of above. left arm Pain Score (Numeric/FACES): 3 - Related Data Allergies Allergy/AdvReac Type Severity Reaction Status Date / Time paper tape Allergy Rash Uncoded 08/25/19 09:09 vitamin C Allergy Rash Uncoded 08/25/19 09:09 Home Meds: Home Meds Losartan [Cozaar] 100 mg PO DAILY #90 tab 09/07/17 [Rx] Fenofibrate 1 tab PO DAILY 12/19/18 [History] metFORMIN [Glucophage XR] 500 mg PO BID 12/19/18 [History] predniSONE [Prednisone] 20 mg PO DAILY #5 tablet 12/19/18 [Rx] Gabapentin [Neurontin] 300 mg PO TID #21 cap 04/03/19 [Rx] Gabapentin [Neurontin] 300 mg PO TID #7 cap 04/03/19 [Rx] predniSONE [Prednisone] 50 mg PO DAILY 5 Days #5 tablet 04/03/19 [Rx] Past Medical History - Past Health History Medical/Surgical History: Denies Medical/Surgical History HEENT History: Reports: Hard of Hearing Other HEENT History: has glasses, has bilateral hearing aides Cardiovascular History: Reports: Hypertension Respiratory History: Reports: None Gastrointestinal History: Reports: None Genitourinary History: Reports: UTI, Recurrent Other Genitourinary History: URI 2 months ago [employer]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', 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 Musculoskeletal History: Reports: None Neurological History: Reports: Migraines Other Neuro History: Some headaches, not chronic, facial nerve damage Psychiatric History: Reports: None Endocrine/Metabolic History: Reports: Diabetes, Type II Hematologic History: Reports: None Immunologic History: Reports: None Oncologic (Cancer) History: Reports: None Dermatologic History: Reports: None - Infectious Disease History Infectious Disease History: Reports: None - Past Surgical History Head Surgeries/Procedures: Reports: None HEENT Surgical History: Reports: Other (See Below) Other HEENT Surgeries/Procedures: Mastoidectomy Female Surgical History: Reports: Hysterectomy, Other (See Below) Other Female Surgeries/Procedures: Hysteroscopy Social & Family History - Family History Family Medical History: Noncontributory - Caffeine Use Caffeine Use: Reports: None ED ROS GENERAL - Review of Systems Review Of Systems: See Below (See dictation) ED EXAM, NEURO - Physical Exam Exam: See Below (See dictation) EKG INTERPRETATION EKG Interpretation Comments: EKG performed today at 9:51 AM, sinus rhythm, rate 78, VH, T inversion in lead III, no STEMI. Interpreted by me. *Q Meaningful Use (ADM) - VTE Risk Assess *Q Each Risk Factor Represents 1 Point: None Total Score 1 Point Risk Factors: 0 Course - Vital Signs Last Recorded V/S: Last Vital Signs Temp 97.1 F 08/25/19 10:03 Pulse 98 08/25/19 10:03 Resp 18 08/25/19 10:03 BP 133/83 08/25/19 10:03 Pulse Ox 98 08/25/19 10:03 - Orders/Labs/Meds Orders: Active Orders 24 hr Category Date Time Status Patient Status [ADT] Routine ADT 08/25/19 10:51 Active Assess Neurological Status [RC] CONTINUOUS Care 08/25/19 09:10 Active Blood Glucose Check, Bedside [RC] STAT Care 08/25/19 09:10 Active Cardiac Monitoring [RC] CONTINUOUS Care 08/25/19 09:10 Active Communication Order [RC] STAT Care 08/25/19 09:10 Active EKG Documentation Completion [RC] STAT Care 08/25/19 09:46 Active Height and Weight [RC] UPON Care 08/25/19 09:10 Active NIH Stroke Scale [RC] Q15M Care 08/25/19 09:10 Active NIH Stroke Scale [RC] STAT Care 08/25/19 09:10 Active Nursing Bedside Swallow Screen [RC] STAT Care 08/25/19 09:10 Active Oxygen Therapy, ED [RC] ASDIRECTED Care 08/25/19 09:10 Active Vital Signs [RC] Q15M Care 08/25/19 09:10 Active Sodium Chloride 0.9% [Normal Saline] Med 08/25/19 09:10 Active 10 ml IV ASDIRECTED PRN Sodium Chloride 0.9% [Normal Saline] 500 ml Med 08/25/19 09:15 Active IV BOLUS Sodium Chloride 0.9% [Saline Flush] Med 08/25/19 09:10 Active 10 ml FLUSH ASDIRECTED PRN Sodium Chloride 0.9% [Saline Flush] Med 08/25/19 09:10 Active 2.5 ml FLUSH ASDIRECTED PRN Peripheral IV Insertion Adult [OM.PC] Stat Ot 08/25/19 09:10 Ordered Peripheral IV Insertion Adult [OM.PC] Stat Ot 08/25/19 09:10 Ordered Resuscitation Status Stat Resus Stat 08/25/19 09:10 Ordered Medication Orders Sodium Chloride (Normal Saline) 500 mls @ 500 mls/hr IV BOLUS DAYO Last Admin: 08/25/19 09:40 Dose: 500 mls/hr Sodium Chloride (Saline Flush) 10 ml FLUSH ASDIRECTED PRN PRN Reason: Keep Vein Open Sodium Chloride (Saline Flush) 2.5 ml FLUSH ASDIRECTED PRN PRN Reason: Keep Vein Open Sodium Chloride (Normal Saline) 10 ml IV ASDIRECTED PRN PRN Reason: IV Use Labs: Laboratory Tests 08/25/19 08/25/19 08/25/19 Range/Units 09:10 09:10 09:10 WBC 6.24 (4.0-11.0) K/uL RBC 4.44 (4.30-5.90) M/uL Hgb 12.7 (12.0-16.0) g/dL Hct 38.8 (36.0-46.0) % MCV 87.4 (80.0-98.0) fL MCH 28.6 (27.0-32.0) pg MCHC 32.7 (31.0-37.0) g/dL RDW Std Deviation 39.2 (28.0-62.0) fl RDW Coeff of Gay 12 (11.0-15.0) % Plt Count 420 H (150-400) K/uL MPV 8.70 (7.40-12.00) fL Neut % (Auto) 46.5 L (48.0-80.0) % Lymph % (Auto) 45.7 H (16.0-40.0) % [place] % (Auto) 5.4 (0.0-15.0) % Eos % (Auto) 1.9 (0.0-7.0) % Baso % (Auto) 0.5 (0.0-1.5) % Neut # (Auto) 2.9 (1.4-5.7) K/uL Lymph # (Auto) 2.9 H (0.6-2.4) K/uL [place] # (Auto) 0.3 (0.0-0.8) K/uL Eos # (Auto) 0.1 (0.0-0.7) K/uL Baso # (Auto) 0.0 (0.0-0.1) K/uL Nucleated RBC % 0.0 /100WBC Nucleated RBCs # 0 K/uL INR 0.92 APTT 27.8 (18.6-31.3) SEC Sodium 139 (136-145) mmol/L Potassium 3.5 (3.5-5.1) mmol/L Chloride 102 (98-107) mmol/L Carbon Dioxide 24.5 (21.0-32.0) mmol/L BUN 11 (7.0-18.0) mg/dL Creatinine 0.8 (0.6-1.0) mg/dL Est Cr Clr Drug Dosing 67.81 mL/min Estimated GFR (MDRD) > 60.0 ml/min Glucose 114 H (74-106) mg/dL POC Glucose (60-110) mg/dL Calcium 9.1 (8.5-10.1) mg/dL Total Bilirubin 0.3 (0.2-1.0) mg/dL AST 17 (15-37) IU/L ALT 22 (14-63) IU/L Alkaline Phosphatase 43 L (46-116) U/L Troponin I < 0.050 (0.000-0.056) ng/mL Total Protein 7.6 (6.4-8.2) g/dL Albumin 4.3 (3.4-5.0) g/dL Globulin 3.3 (2.6-4.0) g/dL Albumin/Globulin Ratio 1.3 (0.9-1.6) HCG, Qual (NEG) 08/25/19 08/25/19 Range/Units 09:10 09:11 WBC (4.0-11.0) K/uL RBC (4.30-5.90) M/uL Hgb (12.0-16.0) g/dL Hct (36.0-46.0) % MCV (80.0-98.0) fL MCH (27.0-32.0) pg MCHC (31.0-37.0) g/dL RDW Std Deviation (28.0-62.0) fl RDW Coeff of Gay (11.0-15.0) % Plt Count (150-400) K/uL MPV (7.40-12.00) fL Neut % (Auto) (48.0-80.0) % Lymph % (Auto) (16.0-40.0) % [place] % (Auto) (0.0-15.0) % Eos % (Auto) (0.0-7.0) % Baso % (Auto) (0.0-1.5) % Neut # (Auto) (1.4-5.7) K/uL Lymph # (Auto) (0.6-2.4) K/uL [place] # (Auto) (0.0-0.8) K/uL Eos # (Auto) (0.0-0.7) K/uL Baso # (Auto) (0.0-0.1) K/uL Nucleated RBC % /100WBC Nucleated RBCs # K/uL INR APTT (18.6-31.3) SEC Sodium (136-145) mmol/L Potassium (3.5-5.1) mmol/L Chloride (98-107) mmol/L Carbon Dioxide (21.0-32.0) mmol/L BUN (7.0-18.0) mg/dL Creatinine (0.6-1.0) mg/dL Est Cr Clr Drug Dosing mL/min Estimated GFR (MDRD) ml/min Glucose (74-106) mg/dL POC Glucose 121 H (60-110) mg/dL Calcium (8.5-10.1) mg/dL Total Bilirubin (0.2-1.0) mg/dL AST (15-37) IU/L ALT (14-63) IU/L Alkaline Phosphatase (46-116) U/L Troponin I (0.000-0.056) ng/mL Total Protein (6.4-8.2) g/dL Albumin (3.4-5.0) g/dL Globulin (2.6-4.0) g/dL Albumin/Globulin Ratio (0.9-1.6) HCG, Qual NEGATIVE (NEG) Meds: Medications Generic Name Dose Route Start Last Admin Trade Name Freq PRN Reason Stop Dose Admin Sodium Chloride 500 mls @ 500 mls/hr 08/25/19 09:15 08/25/19 09:40 Normal Saline IV 500 mls/hr BOLUS DAYO Administration Sodium Chloride 10 ml 08/25/19 09:10 Saline Flush FLUSH ASDIRECTED PRN Keep Vein Open Sodium Chloride 2.5 ml 08/25/19 09:10 Saline Flush FLUSH ASDIRECTED PRN Keep Vein Open Sodium Chloride 10 ml 08/25/19 09:10 Normal Saline IV ASDIRECTED PRN IV Use Discontinued Medications Generic Name Dose Route Start Last Admin Trade Name Uriq PRN Reason Stop Dose Admin Aspirin 324 mg 08/25/19 10:22 08/25/19 10:32 Aspirin PO 08/25/19 10:23 324 mg ONETIME ONE Administration - Re-Assessments/Exams Free Text/Narrative Re-Assessment/Exam: 08/25/19 10:23 On reassessment, the patient reports her symptoms have now resolved. She is no longer having the chest discomfort nor the left arm or facial numbness. She may have had a TIA, as she has multiple stroke risk factors though she is young. Recommended admission to the patient for further TIA work-up, and cardiac rule out. She agrees with the plan. 08/25/19 10:50 Dr. Waddell called back, accepts the admission, agrees with the plan. Departure - Departure Time of Disposition: 10:50 Disposition: Refer to Observation Clinical Impression: TIA (transient ischemic attack) Chest pain Qualifiers: Chest pain type: unspecified Qualified Code(s): R07.9 - Chest pain, unspecified - Discharge Information Referrals: Seth Nuñez MD [Primary Care Provider] - Forms: ED Department Discharge Sepsis Event Note (ED) - Evaluation Sepsis Screening Result: No Definite Risk - Focused Exam Vital Signs: Vital Signs Temp Pulse Resp BP Pulse Ox 08/25/19 10:03 97.1 F 98 18 133/83 98 08/25/19 09:06 96.0 F L 97 20 149/88 H 99 - My Orders Last 24 Hours: My Active Orders 08/25/19 09:10 Assess Neurological Status [RC] CONTINUOUS Blood Glucose Check, Bedside [RC] STAT Cardiac Monitoring [RC] CONTINUOUS Communication Order [RC] STAT Height and Weight [RC] UPON NIH Stroke Scale [RC] Q15M NIH Stroke Scale [RC] STAT Nursing Bedside Swallow Screen [RC] STAT Oxygen Therapy, ED [RC] ASDIRECTED Vital Signs [RC] Q15M Sodium Chloride 0.9% [Normal Saline] 10 ml IV ASDIRECTED PRN Sodium Chloride 0.9% [Saline Flush] 10 ml FLUSH ASDIRECTED PRN Sodium Chloride 0.9% [Saline Flush] 2.5 ml FLUSH ASDIRECTED PRN Peripheral IV Insertion Adult [OM.PC] Stat Peripheral IV Insertion Adult [OM.PC] Stat Resuscitation Status Stat 08/25/19 09:15 Sodium Chloride 0.9% [Normal Saline] 500 ml IV BOLUS 08/25/19 09:46 EKG Documentation Completion [RC] STAT 08/25/19 10:51 Patient Status [ADT] Routine - Assessment/Plan Last 24 Hours: My Active Orders 08/25/19 09:10 Assess Neurological Status [RC] CONTINUOUS Blood Glucose Check, Bedside [RC] STAT Cardiac Monitoring [RC] CONTINUOUS Communication Order [RC] STAT Height and Weight [RC] UPON NIH Stroke Scale [RC] Q15M NIH Stroke Scale [RC] STAT Nursing Bedside Swallow Screen [RC] STAT Oxygen Therapy, ED [RC] ASDIRECTED Vital Signs [RC] Q15M Sodium Chloride 0.9% [Normal Saline] 10 ml IV ASDIRECTED PRN Sodium Chloride 0.9% [Saline Flush] 10 ml FLUSH ASDIRECTED PRN Sodium Chloride 0.9% [Saline Flush] 2.5 ml FLUSH ASDIRECTED PRN Peripheral IV Insertion Adult [OM.PC] Stat Peripheral IV Insertion Adult [OM.PC] Stat Resuscitation Status Stat 08/25/19 09:15 Sodium Chloride 0.9% [Normal Saline] 500 ml IV BOLUS 08/25/19 09:46 EKG Documentation Completion [RC] STAT 08/25/19 10:51 Patient Status [ADT] Routine
--- NOTE | 2019-08-25 09:39 | CT ---
Head CT Technique: Multiple axial sections through the brain were obtained. Intravenous contrast was not utilized. Comparison: Prior head CT study of 04/03/19. Findings: Ventricles along with basal cisterns and sulci over the convexities are within normal limits for the patient's age. No abnormal parenchymal densities are seen. No evidence of intracranial hemorrhage. No midline shift or mass effect is seen. Visualized paranasal sinuses are clear. Previous right mastoidectomy is noted. No acute calvarial abnormality is appreciated. Impression: 1. Nothing acute is appreciated on noncontrast head CT study. 2. No change is identified from previous study. Diagnostic code #2 This report was dictated in MDT
[2019-08-25 09:46] LABS: BLOOD UREA NITROGEN,BUN 11 mg/dL (7.0-18.0); CARBON DIOXIDE,CO2 24.5 mmol/L (21.0-32.0); CHLORIDE,CL 102 mmol/L (98-107); GLUCOSE RANDOM 114 mg/dL (74-106); POTASSIUM,K 3.5 mmol/L (3.5-5.1); SODIUM,NA 139 mmol/L (136-145)
--- NOTE | 2019-08-25 10:02 | CT ---
CT angiogram of neck Technique: Multiple axial sections through the neck were obtained. Intravenous contrast was utilized. Study performed as a CT angiogram of the neck. Multiple metal images were obtained. Findings: Common carotid arteries appear to be patent. Carotid bulb is patent. Internal carotid arteries are patent into the brain. Vertebral arteries appear patent is seen into the basilar artery. Visualized lung apices are clear. No lymphadenopathy is seen within the neck. Impression: 1. No discrete stenosis or occlusion is seen within the neck vessels. Diagnostic code #1 This report was dictated in MDT
--- NOTE | 2019-08-25 10:02 | CT ---
CT angiogram of brain Technique: Multiple axial sections through the brain were obtained. Intravenous contrast was utilized. Study performed as a CT angiogram protocol. Findings: Distal vertebral arteries are patent into the basilar artery. Posterior cerebral arteries appear to be patent. Distal internal carotid arteries appear to be patent. Middle and anterior cerebral arteries are patent. No discrete aneurysm is appreciated. Impression: 1. No abnormality is identified on CT angiogram of the brain. Diagnostic code #1 This report was dictated in MDT
[2019-08-25] MEDS ORDERED: Aspirin 81 MG Tab.Chew PO ONE (10:22)
[2019-08-25] MEDS ORDERED: Acetaminophen 325 MG Tab PO PRN (11:52)
[2019-08-25] MEDS ORDERED: Ondansetron 4 MG/2 ML SDV IVPUSH PRN (11:52)
[2019-08-25] MEDS ORDERED: Docusate Sodium 100 MG Cap PO PRN (11:52)
[2019-08-25 12:26] LABS: HEMOGLOBIN A1C 6.4 % (4.5-6.2)
--- NOTE | 2019-08-25 12:42 | PCM.HP.2 ---
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 She reports she had the same symptoms last night after she had some neck pain and migraine. She took some Excedrine, which helped the headache. The numbness went away. 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 She felt she should be evaluated for this and presented to the ED. She denies any weakness to the L arm, just numbness over the entire arm/ The chest tightness had no associated symptoms such as dyspnea, palpitations or diaphoresis. She and her report there has been increased stress recently at home as well , which may be contributing. She reports she is nervous as family history is positive for CVA in mid 40s as well as HTN and DM. She denies tobacco use, no alcohol use and no recreational drug use In the ED, no leukocytosis noted. Potasium 3.5, glucose 121. HCG negative. EKG SR with no signs of ischemia. Head CT negative. CTA of head and neck also completed, which did not show large vessel occlusion. Symptoms resolved in the ED. BP slightly elevated in the ED, 150/80s. HR WNL. She was treated with ASA. She will be admitted for L arm numbness, possible TIA. left arm Pain Score (Numeric/FACES): 3 - Related Data Allergies/Adverse Reactions: Allergies Allergy/AdvReac Type Severity Reaction Status Date / Time paper tape Allergy Rash Uncoded 08/25/19 09:09 vitamin C Allergy Rash Uncoded 08/25/19 09:09 Home Medications: Home Meds Losartan [Cozaar] 100 mg PO DAILY #90 tab 09/07/17 [Rx] Fenofibrate 1 tab PO DAILY 12/19/18 [History] metFORMIN [Glucophage XR] 500 mg PO BID 12/19/18 [History] predniSONE [Prednisone] 20 mg PO DAILY #5 tablet 10/10/19 [Rx] Gabapentin [Neurontin] 300 mg PO TID #21 cap 04/03/19 [Rx] Gabapentin [Neurontin] 300 mg PO TID #7 cap 04/03/19 [Rx] predniSONE [Prednisone] 50 mg PO DAILY 5 Days #5 tablet 04/03/19 [Rx] Past Medical History - Past Health History Medical/Surgical History: Denies Medical/Surgical History HEENT History: Reports: Hard of Hearing (R), Other (See Below) (R sided facial weakness from facial nerve injury) Other HEENT History: has glasses, has bilateral hearing aides Cardiovascular History: Reports: High Cholesterol, Hypertension. Denies: Afib, Blood Clots/VTE/DVT, CAD Respiratory History: Reports: None Gastrointestinal History: Reports: None. Denies: GERD, GI Bleed Genitourinary History: Reports: UTI, Recurrent Other Genitourinary History: URI 2 months ago [employer] History: Reports: None Other OB/BYN History: Excessive Menses 'heavy', 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 Musculoskeletal History: Reports: None Neurological History: Reports: Migraines Other Neuro History: Some headaches, not chronic, facial nerve damage Psychiatric History: Reports: Anxiety, Depression Endocrine/Metabolic History: Reports: Diabetes, Type II Hematologic History: Reports: None Immunologic History: Reports: None Oncologic (Cancer) History: Reports: None Dermatologic History: Reports: None - Infectious Disease History Infectious Disease History: Reports: Chicken Pox, Measles, Mumps, Rubella - Past Surgical History Head Surgeries/Procedures: Reports: None HEENT Surgical History: Reports: Other (See Below) Other HEENT Surgeries/Procedures: Mastoidectomy Female Surgical History: Reports: Hysterectomy, Other (See Below) Other Female Surgeries/Procedures: Hysteroscopy Social & Family History - Family History Family Medical History: Noncontributory - Tobacco Use Smoking Status *Q: Never Smoker Second Hand Smoke Exposure: No - Caffeine Use Caffeine Use: Reports: Coffee - Alcohol Use Alcohol Use History: No - Recreational Drug Use Recreational Drug Use: No - Living Situation & Occupation Living situation: Reports: 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 Denies: Fever, Chills, Weakness HEENT: Reports: Headaches (migraine yesterday). Denies: Sinus Congestion, Sore Throat, Visual Changes Pulmonary: Denies: Shortness of Breath Cardiovascular: Reports: Chest Pain (with episode of L arm numbness, now gone) Gastrointestinal: Reports: No Symptoms. Denies: Abdominal Pain Musculoskeletal: Reports: Neck Pain (last night, no longer having pain) Neurological: Reports: No Symptoms, Numbness (L arm, now gone) Hematologic/Lymphatic: Reports: No Symptoms Immunologic: Reports: No Symptoms Exam - Exam Exam: See Below - Vital Signs Vital Signs: Last Vital Signs Temp 96.9 F 08/25/19 12:27 Pulse 79 08/25/19 12:27 Resp 14 08/25/19 12:27 BP 145/70 H 08/25/19 12: Pulse Ox 99 08/25/19 12:27 Weight: 64.6 kg - Exam General: Alert, Oriented, Cooperative HEENT: Conjunctiva Clear, Posterior Pharynx Clear. No: Mucosa Moist & [place] Lungs: Clear to Auscultation, Normal Respiratory Effort Cardiovascular: Regular Rate, Regular Rhythm GI/Abdominal Exam: Normal Bowel Sounds, Soft, Non-Tender Back Exam: Normal Inspection, Full Range of Motion Extremities: Normal Inspection, Normal Range of Motion, Non-Tender, No Pedal Edema Skin: Warm, Dry, Intact Neurological: Cranial Nerves Intact, Reflexes Equal Bilateral, Normal Gait, Normal Speech Neuro Extensive - Mental Status: Alert, Oriented x3 Neuro Extensive - Motor, Sensory, Reflexes: CN II-XII Intact, Normal Gait, Facial Palsy (R) (chronic) Psychiatric: Alert, Normal Affect, Normal Mood - Patient Data Lab Results Last 24 hrs: Laboratory Results - last 24 hr 08/25/19 08/25/19 08/25/19 Range/Units 09:10 09:10 09:10 WBC 6.24 (4.0-11.0) K/uL RBC 4.44 (4.30-5.90) M/uL Hgb 12.7 (12.0-16.0) g/dL Hct 38.8 (36.0-46.0) % MCV 87.4 (80.0-98.0) fL MCH 28.6 (27.0-32.0) pg MCHC 32.7 (31.0-37.0) g/dL RDW Std Deviation 39.2 (28.0-62.0) fl RDW Coeff of Gay 12 (11.0-15.0) % Plt Count 420 H (150-400) K/uL MPV 8.70 (7.40-12.00) fL Neut % (Auto) 46.5 L (48.0-80.0) % Lymph % (Auto) 45.7 H (16.0-40.0) % Sumner % (Auto) 5.4 (0.0-15.0) % Eos % (Auto) 1.9 (0.0-7.0) % Baso % (Auto) 0.5 (0.0-1.5) % Neut # (Auto) 2.9 (1.4-5.7) K/uL Lymph # (Auto) 2.9 H (0.6-2.4) K/uL Sumner # (Auto) 0.3 (0.0-0.8) K/uL Eos # (Auto) 0.1 (0.0-0.7) K/uL Baso # (Auto) 0.0 (0.0-0.1) K/uL Nucleated RBC % 0.0 /100WBC Nucleated RBCs # 0 K/uL INR 0.92 APTT 27.8 (18.6-31.3) SEC Sodium 139 (136-145) mmol/L Potassium 3.5 (3.5-5.1) mmol/L Chloride 102 (98-107) mmol/L Carbon Dioxide 24.5 (21.0-32.0) mmol/L BUN 11 (7.0-18.0) mg/dL Creatinine 0.8 (0.6-1.0) mg/dL Est Cr Clr Drug Dosing 67.81 mL/min Estimated GFR (MDRD) > 60.0 ml/min Glucose 114 H (74-106) mg/dL POC Glucose (60-110) mg/dL Hemoglobin A1c (4.5-6.2) % Calcium 9.1 (8.5-10.1) mg/dL Total Bilirubin 0.3 (0.2-1.0) mg/dL AST 17 (15-37) IU/L ALT 22 (14-63) IU/L Alkaline Phosphatase 43 L (46-116) U/L Troponin I < 0.050 (0.000-0.056) ng/mL Total Protein 7.6 (6.4-8.2) g/dL Albumin 4.3 (3.4-5.0) g/dL Globulin 3.3 (2.6-4.0) g/dL Albumin/Globulin Ratio 1.3 (0.9-1.6) HCG, Qual (NEG) 08/25/19 08/25/19 08/25/19 Range/Units 09:10 09:10 09:11 WBC (4.0-11.0) K/uL RBC (4.30-5.90) M/uL Hgb (12.0-16.0) g/dL Hct (36.0-46.0) % MCV (80.0-98.0) fL MCH (27.0-32.0) pg MCHC (31.0-37.0) g/dL RDW Std Deviation (28.0-62.0) fl RDW Coeff of Gay (11.0-15.0) % Plt Count (150-400) K/uL MPV (7.40-12.00) fL Neut % (Auto) (48.0-80.0) % Lymph % (Auto) (16.0-40.0) % Sumner % (Auto) (0.0-15.0) % Eos % (Auto) (0.0-7.0) % Baso % (Auto) (0.0-1.5) % Neut # (Auto) (1.4-5.7) K/uL Lymph # (Auto) (0.6-2.4) K/uL Sumner # (Auto) (0.0-0.8) K/uL Eos # (Auto) (0.0-0.7) K/uL Baso # (Auto) (0.0-0.1) K/uL Nucleated RBC % /100WBC Nucleated RBCs # K/uL INR APTT (18.6-31.3) SEC Sodium (136-145) mmol/L Potassium (3.5-5.1) mmol/L Chloride (98-107) mmol/L Carbon Dioxide (21.0-32.0) mmol/L BUN (7.0-18.0) mg/dL Creatinine (0.6-1.0) mg/dL Est Cr Clr Drug Dosing mL/min Estimated GFR (MDRD) ml/min Glucose (74-106) mg/dL POC Glucose 121 H (60-110) mg/dL Hemoglobin A1c 6.4 H (4.5-6.2) % Calcium (8.5-10.1) mg/dL Total Bilirubin (0.2-1.0) mg/dL AST (15-37) IU/L ALT (14-63) IU/L Alkaline Phosphatase (46-116) U/L Troponin I (0.000-0.056) ng/mL Total Protein (6.4-8.2) g/dL Albumin (3.4-5.0) g/dL Globulin (2.6-4.0) g/dL Albumin/Globulin Ratio (0.9-1.6) HCG, Qual NEGATIVE (NEG) Result Diagrams: 08/25/19 09:10 08/25/19 09:10 EKG INTERPRETATION EKG Date: 08/25/19 Rhythm: NSR P-Wave: Present QRS: Normal ST-T: Normal QT: Normal Sepsis Event Note - Evaluation Sepsis Screening Result: No Definite Risk - Focused Exam Vital Signs: Vital Signs Temp Pulse Resp BP Pulse Ox 08/25/19 12:27 96.9 F 79 14 145/70 H 99 08/25/19 10:55 97.9 F 74 18 138/82 98 08/25/19 10:03 97.1 F 98 18 133/83 98 08/25/19 09:06 96.0 F L 97 20 149/88 H 99 Date Exam was Performed: 08/25/19 Time Exam was Performed: 12:48 - Problem List (1) Left arm numbness SNOMED Code(s): 366596483 ICD Code: R20.0 - ANESTHESIA OF SKIN Status: Acute Current Visit: Yes (2) TIA (transient ischemic attack) SNOMED Code(s): 553137145 ICD Code: G45.9 - TRANSIENT CEREBRAL ISCHEMIC ATTACK, UNSPECIFIED Status: Suspected Current Visit: Yes (3) HTN (hypertension) SNOMED Code(s): 45083424 ICD Code: I10 - ESSENTIAL (PRIMARY) HYPERTENSION Status: Chronic Current Visit: Yes Qualifiers: Hypertension type: essential hypertension Qualified Code(s): I10 - Essential (primary) hypertension (4) Dyslipidemia SNOMED Code(s): 567720258 ICD Code: E78.5 - HYPERLIPIDEMIA, UNSPECIFIED Status: Chronic Current Visit: Yes (5) Diabetes mellitus type 2 in nonobese SNOMED Code(s): 959749407 ICD Code: E11.9 - TYPE 2 DIABETES MELLITUS WITHOUT COMPLICATIONS Status: Chronic Current Visit: No Problem List Initiated/Reviewed/Updated: Yes Orders Last 24hrs: Active Orders 24 hr Category Date Time Status Patient Status [ADT] Routine ADT 08/25/19 10:51 Active Assess Neurological Status [RC] CONTINUOUS Care 08/25/19 09:10 Inactive Blood Glucose Check, Bedside [RC] TIDMEALS Care 08/25/19 11:53 Active Cardiac Monitoring [RC] CONTINUOUS Care 08/25/19 09:10 Active Communication Order [RC] STAT Care 08/25/19 09:10 Active Intake and Output [RC] QSHIFT Care 08/25/19 11:52 Active NIH Stroke Scale [RC] Q4H Care 08/25/19 12:00 Active NIH Stroke Scale [RC] STAT Care 08/25/19 09:10 Inactive Oxygen Therapy [RC] PRN Care 08/25/19 11:52 Active Oxygen Therapy, ED [RC] ASDIRECTED Care 08/25/19 09:10 Inactive Telemetry Monitoring [Cardiac Monitoring] [RC] Q8H Care 08/25/19 11:50 Active Up With Assistance [RC] ASDIRECTED Care 08/25/19 11:52 Active VTE/DVT Education [RC] PER UNIT ROUTINE Care 08/25/19 11:52 Active Vital Signs [RC] Q4H Care 08/25/19 11:52 Active [place] [employer] Diet [DIET] Diet 08/25/19 Lunch Active BASIC METABOLIC PANEL,BMP [CHEM] AM Lab 08/26/19 05:11 Ordered CBC WITH AUTO DIFF [HEME] AM Lab 08/26/19 05:11 Ordered LIPID PANEL [CHEM] AM Lab 08/26/19 05:11 Ordered TSH [CHEM] Routine Lab 08/25/19 09:10 Received Acetaminophen [Tylenol] Med 08/25/19 11:52 Active 650 mg PO Q4H PRN Docusate Sodium [Colace] Med 08/25/19 11:52 Active 100 mg PO BID PRN Enoxaparin [Lovenox] Med 08/25/19 12:00 Active 40 mg SUBCUT Q24H Insulin Aspart [NovoLOG] Med 08/25/19 17:00 Active See Protocol SUBCUT TIDAC Ondansetron [Zofran] Med 08/25/19 11:52 Active 4 mg IVPUSH Q4H PRN Sodium Chloride 0.9% [Saline Flush] Med 08/25/19 09:10 Active 2.5 ml FLUSH ASDIRECTED PRN Resuscitation Status Stat Resus Stat 08/25/19 09:10 Ordered Medication Orders Acetaminophen (Tylenol) 650 mg PO Q4H PRN PRN Reason: Pain (Mild 1-3)/fever Docusate Sodium (Colace) 100 mg PO BID PRN PRN Reason: Constipation Enoxaparin Sodium (Lovenox) 40 mg SUBCUT Q24H DAYO Insulin Aspart (Novolog) 0 unit SUBCUT TIDAC DAYO; Protocol Ondansetron HCl (Zofran) 4 mg IVPUSH Q4H PRN PRN Reason: Nausea Sodium Chloride (Saline Flush) 2.5 ml FLUSH ASDIRECTED PRN PRN Reason: Keep Vein Open Assessment/Plan Comment:: This 38 year old female admitted with L arm numbness, possible TIA 1. L arm numbness - Suspected TIA vs radiculopathy of neck - CTA head and neck negative in ED - Obtain MRI brain and cervical spine - A1c stable 6.4 - BP stable, will monitor - TSH 1.66 - Monitor on telemetry - Could be related to stress as this has been elevated this week per her and - Follow up with Dr Oakes as outpatient - No therapies needed as symptoms are now gone. 2. Chest pain - Monitor telemetry - Troponin Q6 x 2 more 3. DM Type 2: - Well controlled on Metformin - Hold po, Novolog SSI with meals during admission 4. HTN: - Stable, will monitor - Likely restart antihypertensives after MRI if negative. VTE prophylaxis: Lovenox. Dispo: 1-2 days - Mortality Measure Prognosis:: Good
[2019-08-25] MEDS ORDERED: Gadobenate Dimeglumine 529 MG/ML 20 ML SDV IVPUSH STA ×2 (13:20→15:20)
[2019-08-25] MEDS: Enoxaparin 40 MG/0.4 ML Syringe SUBCUT SCH (14:25)
--- NOTE | 2019-08-25 15:26 | MR ---
MRI cervical spine (without and with intravenous contrast) Comparison: No prior cervical spine imaging. Technique: T2, FFE and T1 fat-suppressed postcontrast axial images were obtained from above the C2-C3 disc inferiorly through the C7-T1 disc. T1, T2, fat suppressed inversion recovery and T1 fat-suppressed postcontrast axial images were obtained. Findings: C2-C3: Very slight posterior disc bulge to the midline is seen. No central canal stenosis or neural foraminal stenosis is seen. C3-C4: Focal disc protrusion seen posteriorly to the midline which indents the anterior thecal sac. No central canal stenosis or neural foraminal stenosis is seen. C4-C5: Focal disc protrusion is seen posteriorly to the midline indenting the anterior thecal sac. No central canal stenosis or neural foraminal stenosis is seen. C5-C6: Small focal disc bulge to the midline is seen which indents the anterior thecal sac. No central canal stenosis or neural foraminal stenosis is seen. C6-C7: Posterior disc is preserved. No central canal stenosis or neural foraminal stenosis is seen. C7-T1: Posterior disc is maintained. No central canal stenosis or neural foraminal stenosis is seen. T1-T2 through T3-T4: Posterior disks are maintained. No central canal stenosis or neural foraminal stenosis is seen. Cervical cord shows no abnormal signal or mass. Slightly abnormal cervical curvature is seen which may be positional or due to muscle spasm. No abnormal enhancement is seen. Impression: 1. Multiple posterior disc bulging and protrusions. No central canal stenosis or neural foraminal stenosis is seen. 2. Slightly abnormal cervical curvature as noted above. Diagnostic code #3 Study was dictated in MDT
--- NOTE | 2019-08-25 15:26 | MR ---
MRI brain (without and with intravenous contrast) Technique: T1 sagittal and coronal; T1, T2, FLAIR and diffusion axial; postcontrast T1 fat-suppressed sagittal, coronal and axial images were obtained. Comparison: Prior head CT study of 08/25/19. Findings: No acute diffusion abnormalities are seen. Ventricles along with basal cisterns and sulci over the convexities are within normal limits. Normal signal void is seen within the major cerebral arteries within the skull base. No abnormal signal is seen within the brain parenchyma. No midline shift or mass effect is seen. No abnormal enhancement is seen. Impression: 1. No abnormality is appreciated on MRI study of the brain. Diagnostic code #1 Study was dictated in MDT
[2019-08-25] MEDS ORDERED: Iopamidol 755 MG/ML 500 ML Multipack Bottle IVPUSH STA (17:25)
[2019-08-25] MEDS: Insulin Aspart 100 Units/ML 3 ML Pen SUBCUT SCH (18:19)
[2019-08-26 06:29] LABS: BLOOD UREA NITROGEN,BUN 9 mg/dL (7.0-18.0); CARBON DIOXIDE,CO2 28.6 mmol/L (21.0-32.0); CHLORIDE,CL 102 mmol/L (98-107); GLUCOSE RANDOM 132 mg/dL (74-106); POTASSIUM,K 3.7 mmol/L (3.5-5.1); SODIUM,NA 139 mmol/L (136-145)
[2019-08-26] MEDS: Insulin Aspart 100 Units/ML 3 ML Pen SUBCUT SCH (07:27)
[2019-08-26 07:54] VITALS: PULSE 67
[2019-08-26 11:54] VITALS: BP 132/85
[2019-08-26] MEDS: Enoxaparin 40 MG/0.4 ML Syringe SUBCUT SCH (12:01)
--- NOTE | 2019-08-26 16:17 | PCM.DCSUM1 ---
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 She reports she had the same symptoms last night after she had some neck pain and migraine. She took some Excedrine, which helped the headache. The numbness went away. 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 She felt she should be evaluated for this and presented to the ED. She denies any weakness to the L arm, just numbness over the entire arm/ The chest tightness had no associated symptoms such as dyspnea, palpitations or diaphoresis. She and her report there has been increased stress recently at home as well, which may be contributing. She reports she is nervous as family history is positive for CVA in mid 40s as well as HTN and DM. She denies tobacco use, no alcohol use and no recreational drug use. In the ED, no leukocytosis noted. Potasium 3.5, glucose 121. HCG negative. EKG SR with no signs of ischemia. Head CT negative. CTA of head and neck also completed, which did not show large vessel occlusion. Symptoms resolved in the ED. BP slightly elevated in the ED, 150/80s. HR WNL. She was treated with ASA. She will be admitted for L arm numbness, possible TIA. Diagnosis: Stroke: No - Discharge Data Discharge Date: 08/26/19 Discharge Disposition: Home, Self-Care 01 Condition: Good - Referral to Home Health Primary Care Physician: Seth Nuñez MD - Discharge Diagnosis/Problem(s) (1) Left arm numbness SNOMED Code(s): 510369085 ICD Code: R20.0 - ANESTHESIA OF SKIN Status: Acute (2) TIA (transient ischemic attack) SNOMED Code(s): 253104747 ICD Code: G45.9 - TRANSIENT CEREBRAL ISCHEMIC ATTACK, UNSPECIFIED Status: Suspected (3) HTN (hypertension) SNOMED Code(s): 51607533 ICD Code: I10 - ESSENTIAL (PRIMARY) HYPERTENSION Status: Chronic Qualifiers: Hypertension type: essential hypertension Qualified Code(s): I10 - Essential (primary) hypertension (4) Dyslipidemia SNOMED Code(s): 112350498 ICD Code: E78.5 - HYPERLIPIDEMIA, UNSPECIFIED Status: Chronic (5) Diabetes mellitus type 2 in nonobese SNOMED Code(s): 363222761 ICD Code: E11.9 - TYPE 2 DIABETES MELLITUS WITHOUT COMPLICATIONS Status: Chronic (6) Chest pain SNOMED Code(s): 68113952 ICD Code: R07.9 - CHEST PAIN, UNSPECIFIED Status: Acute Qualifiers: Chest pain type: unspecified Qualified Code(s): R07.9 - Chest pain, unspecified - Patient Summary/Data Hospital Course: Admitting Diagnoses: L arm numbness Chest pain Discharge Diagnoses: L arm numbness TIA Chest pain Other PMH: HTN DM type 2 Dyslipidemia Gustavo was admitted secondary to concerns of CVA. MRI obtained, which was negative for acute CVA. Cervical neck included as well, which was negative for any acute stenosis. She was monitored overnight on telemetry, which no changes. Mild numbness to L arm waxes and wanes throughout stay. BP well controlled. Lipid panel revealed elevated triglycerides. Due to TIA, will add Atrovastatin 40 mg daily, discontinue Fenofibrate. ECHO pending on discharge. She was encouraged to take ASA daily as well. OT evaluation as outpatient referral given. Troponins were trended as well due to chest pain, which were negative ACS ruled out. She will have outpatient stress test and follow up with PCP as well as Dr Oakes. This may also be component of stress and anxiety, she was counseled on ways to lower stress during usually difficult times. She verbalized understanding. She will be discharged home today, return to ED or clinic if concerns should arise. - Patient Instructions Diet: Heart Healthy Diet, Diabetic Diet Activity: As Tolerated, No Strenuous Activities Showering/Bathing: May Shower Notify Provider of: Fever, Increased Pain, Swelling and Redness, Drainage, Nausea and/or Vomiting - Discharge Plan *PRESCRIPTION DRUG MONITORING PROGRAM REVIEWED*: Not Applicable *COPY OF PRESCRIPTION DRUG MONITORING REPORT IN PATIENT MAG: Not Applicable Prescriptions/Med Rec: Aspirin 81 mg PO DAILY #30 tab.chew atorvaSTATin [Lipitor] 40 mg PO BEDTIME #30 tab Home Medications: Home Meds Losartan [Cozaar] 100 mg PO DAILY #90 tab 09/07/17 [Rx] Esomeprazole [NexIUM] 40 mg PO ACBREAKFAST 08/25/19 [History] LORazepam [Ativan] 0.5 mg PO BEDTIME PRN 08/25/19 [History] Sertraline [Zoloft] 50 mg PO DAILY 08/25/19 [History] Aspirin 81 mg PO DAILY #30 tab.chew 08/26/19 [Rx] atorvaSTATin [Lipitor] 40 mg PO BEDTIME #30 tab 08/26/19 [Rx] metFORMIN HCl [Metformin HCl] 500 mg PO BIDMEALS 08/26/19 [History] Oxygen Therapy Mode: Room Air Patient Handouts: Transient Ischemic Attack, [id number], Nonspecific Chest Pain, Adult, Atorvastatin tablets, Aspirin, ASA oral tablets Referrals: Seth Nuñez MD [Primary Care Provider] - 09/04/19 10:00 am (Arrive 15 minutes early with a photo ID, insurance card, and a mask if you have one. ) - Discharge Summary/Plan Comment DC Time >30 min.: No - Patient Data Vitals - Most Recent: Last Vital Signs Temp 97.7 F 08/26/19 11:30 Pulse 67 08/26/19 11:30 Resp 16 08/26/19 11:30 BP 132/85 08/26/19 11:30 Pulse Ox 97 08/26/19 11:30 Weight - Most Recent: 64.6 kg I&O - Last 24 hours: Intake & Output 08/26/19 08/26/19 08/26/19 06:59 14:59 22:59 Intake Total 200 Output Total 600 2250 Balance -600 -2050 Lab Results - Last 24 hrs: Laboratory Results - last 24 hr 08/25/19 08/25/19 08/25/19 Range/Units 15:40 17:42 21:49 WBC (4.0-11.0) K/uL RBC (4.30-5.90) M/uL Hgb (12.0-16.0) g/dL Hct (36.0-46.0) % MCV (80.0-98.0) fL MCH (27.0-32.0) pg MCHC (31.0-37.0) g/dL RDW Std Deviation (28.0-62.0) fl RDW Coeff of Gay (11.0-15.0) % Plt Count (150-400) K/uL MPV (7.40-12.00) fL Neut % (Auto) (48.0-80.0) % Lymph % (Auto) (16.0-40.0) % Summers % (Auto) (0.0-15.0) % Eos % (Auto) (0.0-7.0) % Baso % (Auto) (0.0-1.5) % Neut # (Auto) (1.4-5.7) K/uL Lymph # (Auto) (0.6-2.4) K/uL Summers # (Auto) (0.0-0.8) K/uL Eos # (Auto) (0.0-0.7) K/uL Baso # (Auto) (0.0-0.1) K/uL Nucleated RBC % /100WBC Nucleated RBCs # K/uL Sodium (136-145) mmol/L Potassium (3.5-5.1) mmol/L Chloride (98-107) mmol/L Carbon Dioxide (21.0-32.0) mmol/L BUN (7.0-18.0) mg/dL Creatinine (0.6-1.0) mg/dL Est Cr Clr Drug Dosing mL/min Estimated GFR (MDRD) ml/min Glucose (74-106) mg/dL POC Glucose 101 (60-110) mg/dL Calcium (8.5-10.1) mg/dL Troponin I < 0.050 < 0.050 (0.000-0.056) ng/mL Triglycerides (0-200) mg/dL Cholesterol (50-200) mg/dL LDL Cholesterol, Calc (60-180) mg/dL VLDL Cholesterol (5-55) mg/dL HDL Cholesterol (40-60) mg/dL Cholesterol/HDL Ratio (3.3-6.0) 08/26/19 08/26/19 08/26/19 Range/Units 05:56 05:56 06:25 WBC 5.56 (4.0-11.0) K/uL RBC 4.17 L (4.30-5.90) M/uL Hgb 11.9 L (12.0-16.0) g/dL Hct 36.1 (36.0-46.0) % MCV 86.6 (80.0-98.0) fL MCH 28.5 (27.0-32.0) pg MCHC 33.0 (31.0-37.0) g/dL RDW Std Deviation 39.1 (28.0-62.0) fl RDW Coeff of Gay 12 (11.0-15.0) % Plt Count 396 (150-400) K/uL MPV 8.70 (7.40-12.00) fL Neut % (Auto) 53.5 (48.0-80.0) % Lymph % (Auto) 37.6 (16.0-40.0) % Summers % (Auto) 6.3 (0.0-15.0) % Eos % (Auto) 2.2 (0.0-7.0) % Baso % (Auto) 0.4 (0.0-1.5) % Neut # (Auto) 3.0 (1.4-5.7) K/uL Lymph # (Auto) 2.1 (0.6-2.4) K/uL Summers # (Auto) 0.4 (0.0-0.8) K/uL Eos # (Auto) 0.1 (0.0-0.7) K/uL Baso # (Auto) 0.0 (0.0-0.1) K/uL Nucleated RBC % 0.0 /100WBC Nucleated RBCs # 0 K/uL Sodium 139 (136-145) mmol/L Potassium 3.7 (3.5-5.1) mmol/L Chloride 102 (98-107) mmol/L Carbon Dioxide 28.6 (21.0-32.0) mmol/L BUN 9 (7.0-18.0) mg/dL Creatinine 0.7 (0.6-1.0) mg/dL Est Cr Clr Drug Dosing 77.50 mL/min Estimated GFR (MDRD) > 60.0 ml/min Glucose 132 H (74-106) mg/dL POC Glucose 109 (60-110) mg/dL Calcium 8.7 (8.5-10.1) mg/dL Troponin I (0.000-0.056) ng/mL Triglycerides 210 H (0-200) mg/dL Cholesterol 157 (50-200) mg/dL LDL Cholesterol, Calc 60 (60-180) mg/dL VLDL Cholesterol 42 (5-55) mg/dL HDL Cholesterol 55 (40-60) mg/dL Cholesterol/HDL Ratio 2.9 L (3.3-6.0) Med Orders - Current: Current Medications Discontinued Medications Acetaminophen (Tylenol) 650 mg PO Q4H PRN PRN Reason: Pain (Mild 1-3)/fever Aspirin (Aspirin) 324 mg PO ONETIME ONE Stop: 08/25/19 10:23 Last Admin: 08/25/19 10:32 Dose: 324 mg Docusate Sodium (Colace) 100 mg PO BID PRN PRN Reason: Constipation Enoxaparin Sodium (Lovenox) 40 mg SUBCUT Q24H DAYO Last Admin: 08/26/19 12:01 Dose: 40 mg Gadobenate Dimeglumine (Multihance) 20 ml IVPUSH ONETIME STA Stop: 08/25/19 13:21 Last Admin: 08/25/19 14:26 Dose: Not Given Gadobenate Dimeglumine (Multihance) 20 ml IVPUSH ONETIME STA Stop: 08/25/19 15:21 Last Admin: 08/25/19 15:21 Dose: 12 ml Sodium Chloride (Normal Saline) 500 mls @ 500 mls/hr IV BOLUS DAYO Last Admin: 08/25/19 09:40 Dose: 500 mls/hr Insulin Aspart (Novolog) 0 unit SUBCUT TIDAC DAYO; Protocol Last Admin: 08/26/19 07:27 Dose: 1 unit Iopamidol (Isovue Multipack-370 (76%)) 100 ml IVPUSH ONETIME STA Stop: 08/25/19 17:26 Last Admin: 08/25/19 17:26 Dose: 100 ml Ondansetron HCl (Zofran) 4 mg IVPUSH Q4H PRN PRN Reason: Nausea Sodium Chloride (Saline Flush) 10 ml FLUSH ASDIRECTED PRN PRN Reason: Keep Vein Open Sodium Chloride (Saline Flush) 2.5 ml FLUSH ASDIRECTED PRN PRN Reason: Keep Vein Open Sodium Chloride (Normal Saline) 10 ml IV ASDIRECTED PRN PRN Reason: IV Use - Exam General: Reports: Alert, Oriented, Cooperative, No Acute Distress Lungs: Reports: Clear to Auscultation, Normal Respiratory Effort Cardiovascular: Reports: Regular Rate, Regular Rhythm GI/Abdominal Exam: Normal Bowel Sounds, Soft, Non-Tender Extremities: Normal Inspection, Normal Range of Motion, Non-Tender Neurological: Reports: Normal Gait, Normal Speech, Strength Equal Bilateral, Other (mild L arm numbess waxes and wanes.) Psy/Mental Status: Reports: Alert, Normal Affect, Normal Mood
== END 2019-08-26 12:50 | disposition home or self-care (01) ==
LOC: MW.ED 08:58 → MW.MS 11:10
PROVIDERS: ADMIT Internal Medicine; ATTEND Internal Medicine
DX: R20.0 Anesthesia of skin (principal); G45.9 Transient cerebral ischemic attack, unspecified; M54.2 Cervicalgia; R07.89 Other chest pain; R51 Headache; I10 Essential (primary) hypertension; E11.9 Type 2 diabetes mellitus without complications; E78.00 Pure hypercholesterolemia, unspecified; F41.9 Anxiety disorder, unspecified; F32.9 Major depressive disorder, single episode, unspecified; E78.5 Hyperlipidemia, unspecified; Z88.8 Allergy status to other drugs, medicaments and biological substances; Z79.84 Long term (current) use of oral hypoglycemic drugs; Z79.899 Other long term (current) drug therapy
CPT/HCPCS: 36415; 70450; 70496; 70498; 70553; 72156; 80048; 80053; 80061; 82962; 83036; 84443; 84484; 84703; 85025; 85610; 85730; 93005; 99285; A9270; A9577; J1650; J1815; J7040; Q9967

== ENCOUNTER 2020-07-26 02:47 | Emergency (ER) | payer OTHER ==
[2020-07-26] MEDS ORDERED: Ketorolac 15 MG/ML SDV IVPUSH ONE (03:07)
[2020-07-26] MEDS ORDERED: Sodium Chloride 0.9% 2.5 ML Syringe FLUSH PRN (03:07)
[2020-07-26] MEDS ORDERED: Pantoprazole 40 MG in Sodium Chloride 0.9% 10 ML IV ONE (03:07)
[2020-07-26] MEDS ORDERED: Sodium Chloride 0.9% 10 ML Syringe FLUSH PRN (03:07)
--- NOTE | 2020-07-26 03:51 | CR ---
Indication: Left arm pain Technique: Chest 1 view Comparison: None Findings/Impression: Cardiovascular and mediastinum: Heart size and vasculature are normal in caliber and appearance. Lungs and pleural space: Lungs are clear. No sign of infiltrate or mass. No sign of pleural effusion. No pneumothorax. Bones and soft tissues: No acute findings. Dictated by Romeo Villeda MD @ 07/26/2020 3:48:[address] Romeo Villeda @ Jul 26 2020 3:48AM
[2020-07-26 03:53] LABS: BLOOD UREA NITROGEN,BUN 10 mg/dL (7.0-18.0); CARBON DIOXIDE,CO2 24.3 mmol/L (21.0-32.0); CHLORIDE,CL 103 mmol/L (98-107); GLUCOSE RANDOM 132 mg/dL (74-106); LIPASE 223 U/L (73-393); POTASSIUM,K 3.8 mmol/L (3.5-5.1); SODIUM,NA 139 mmol/L (136-145)
--- NOTE | 2020-07-26 05:35 | EDM.PDOC ---
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 Patient denies any associated diaphoresis, shortness of breath, chest pain or pressure, nausea, vomiting. Pain is not exacerbated with rest or exertion. Pain is not changed with ambulation, position, meals. Patient reports she had a recent work-up for heart with a stress test that was normal. Patient denies any recent fevers, shakes, chills, nausea, vomiting, diarrhea, dysuria, frequency, urgency. Patient reports that she did an excessive amount of reading the day before yesterday prior to the beginning of her left arm pain. Patient reports that she did experience a slight twinge of right-sided chest pain yesterday that was short lasting and not recurrent. Patient denies the weakness or numbness to her upper or lower extremities. Patient has any slurred speech, visual changes. Patient reports normal gait. reports no change in facial symmetry or speech. 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 She reports she has no concerns regarding stroke but is concerned about an atypical presentation of her chest pain given her significant family history. Review of systems: As per history of present illness and below otherwise all systems reviewed and negative. Past medical history: As per history of present illness and as reviewed below otherwise noncontributory. Surgical history: As per history of present illness and as reviewed below otherwise noncontributory. Social history: No reported history of drug abuse. Family history: As per history of present illness and as reviewed below otherwise noncontributory. Physical exam: This patient was seen and evaluated during the 2019 SARS-CoV-2 novel coronavirus pandemic period. Community viral transmission is ongoing at time of this encounter and the emergency department is operating under pandemic response procedures. Constitutional: Patient is oriented to person, place, and time. Appears well- developed and well-nourished. No distress. HEENT: Moist mucous membranes Head: Normocephalic and atraumatic Eyes: Right eye exhibits no discharge. Left eye exhibits no discharge. No scleral icterus Neck: Normal range of motion. No tracheal deviation present. Cardiovascular: Normal rate and regular rhythm. Pulmonary: Effort normal, no respiratory distress. Abdominal: No distention Musculoskeletal: Normal range of motion Neurologic: Alert and oriented to person, place and time. Skin: [place], warm and dry. Psychiatric: Normal mood and affect. Behavior is normal. Judgment and thought content normal. Nursing note and vital signs have been reviewed Diagnostics: EKG: As interpreted by ER physician: Mickey: Nonspecific ST-T wave abnormalities, LVH Normal axis No evidence of ST elevation [place] Normal sinus rhythm heart rate of 67 Chest Xray: Normal cardiac silhouette No infiltrates or effusions identified. No PTX No evidence of acute bony fracture. As interpreted by ER MD: Mickey CBC, CMP within normal limits Troponin level normal 2-hour troponin level normal Therapeutics: Toradol 15 mg IV Assessment and plan: This is a 39-year-old female with significant risk factors for coronary disease who presents ER today complaining of left arm pain and discomfort. Patient's ER work-up is been unremarkable. Patient has no complaints of any chest pain or discomfort. Patient and has been reports that she did a lot of weeding and think that this may be the culprit however the discomfort to her left arm. Patient has a troponin level that is negative x2. I have discussed the options of obtaining a CT scan and the patient does not feel it is warranted at this time. I would agree with her opinion on this as her presentation does not appear to be consistent with CVA. At this time, I do not feel that the patient will need inpatient level of care for her left arm pain. Her left arm pain appears to be more likely related to mechanical pain from exertion and bleeding. Patient feels very comfortable with the plan to be discharged home at this time. I have discussed with the patient the need to follow-up with her primary care doctor/production control coordinating clerk for reevaluation and their assessment as well. Reassessment at the time of disposition demonstrates that the patient is in no acute distress. The patient has remained stable throughout the entire ED visit and is without objective evidence for acute process requiring urgent intervention or hospitalization. The patient is stable for discharge, counseling is provided as documented above, discussed symptomatic treatment and specific conditions for return. I have spoken with the patient/caregiver and discussed todays findings, in addition to providing specific details for the plan of care. Questions are answered and there is agreement with the plan. Definitive disposition and diagnosis as appropriate pending reevaluation and review of above. left arm Pain Score (Numeric/FACES): 4 - Related Data Allergies Allergy/AdvReac Type Severity Reaction Status Date / Time paper tape Allergy Rash Uncoded 07/26/20 03:01 vitamin C Allergy Rash Uncoded 07/26/20 03:01 Home Meds: Home Meds Losartan [Cozaar] 100 mg PO DAILY #90 tab 09/07/17 [Rx] Esomeprazole [NexIUM] 40 mg PO ACBREAKFAST 08/25/19 [History] LORazepam [Ativan] 0.5 mg PO BEDTIME PRN 08/25/19 [History] Sertraline [Zoloft] 50 mg PO DAILY 08/25/19 [History] Aspirin 81 mg PO DAILY #30 tab.chew 08/26/19 [Rx] atorvaSTATin [Lipitor] 40 mg PO BEDTIME #30 tab 08/26/19 [Rx] metFORMIN HCl [Metformin HCl] 500 mg PO BIDMEALS 08/26/19 [History] Past Medical History - Past Health History Medical/Surgical History: Denies Medical/Surgical History HEENT History: Reports: Hard of Hearing, Other (See Below) Other HEENT History: has glasses, has bilateral hearing aides Cardiovascular History: Reports: High Cholesterol, Hypertension Respiratory History: Reports: None Gastrointestinal History: Reports: None Genitourinary History: Reports: UTI, Recurrent Other Genitourinary History: URI 2 months ago REBAR FABRICATOR History: Reports: Other (See Below) Other REBAR FABRICATOR History: Excessive Menses 'heavy', 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 Musculoskeletal History: Reports: None Neurological History: Reports: Migraines Other Neuro History: Some headaches, not chronic, facial nerve damage Psychiatric History: Reports: Anxiety, Depression Endocrine/Metabolic History: Reports: Diabetes, Type II Hematologic History: Reports: None Immunologic History: Reports: None Oncologic (Cancer) History: Reports: None Dermatologic History: Reports: None - Infectious Disease History Infectious Disease History: Reports: Chicken Pox, Measles, Mumps, Rubella - Past Surgical History Head Surgeries/Procedures: Reports: None HEENT Surgical History: Reports: Other (See Below) Other HEENT Surgeries/Procedures: Mastoidectomy Cardiovascular Surgical History: Reports: None Respiratory Surgical History: Reports: None GI Surgical History: Reports: None Female Surgical History: Reports: Hysterectomy, Other (See Below) Other Female Surgeries/Procedures: Hysteroscopy Endocrine Surgical History: Reports: None Neurological Surgical History: Reports: None Musculoskeletal Surgical History: Reports: None Oncologic Surgical History: Reports: None Dermatological Surgical History: Reports: None Social & Family History - Family History Family Medical History: No Pertinent Family History - Caffeine Use Caffeine Use: Reports: None - Recreational Drug Use Recreational Drug Use: No - Living Situation & Occupation Living situation: Reports: 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) Review of Systems - Review of Systems Review Of Systems: See Below ED EXAM, GENERAL - Physical Exam Exam: See Below #2 Interpretation EKG Interpretation Comments: EKG: As interpreted by ER physician: Mickey: Nonspecific ST-T wave abnormalities Normal axis No evidence of ST elevation [place] Normal sinus rhythm heart rate of 78 LVH Course - Vital Signs Last Recorded V/S: Last Vital Signs Temp 97 F 07/26/20 02:56 Pulse 75 07/26/20 02:56 Resp 16 07/26/20 02:56 BP 165/99 H 07/26/20 02:56 Pulse Ox 98 07/26/20 02:56 - Orders/Labs/Meds Orders: Active Orders 24 hr Category Date Time Status EKG Documentation Completion [RC] AM Care 07/26/20 03:07 Active Sodium Chloride 0.9% [Saline Flush] Med 07/26/20 03:07 Active 10 ml FLUSH ASDIRECTED PRN Sodium Chloride 0.9% [Saline Flush] Med 07/26/20 03:07 Active 2.5 ml FLUSH ASDIRECTED PRN Saline Lock Insert [OM.PC] Stat Oth 07/26/20 03:07 Ordered Medication Orders Sodium Chloride (Sodium Chloride 0.9% 10 Ml Syringe) 10 ml FLUSH ASDIRECTED PRN PRN Reason: Keep Vein Open Sodium Chloride (Sodium Chloride 0.9% 2.5 Ml Syringe) 2.5 ml FLUSH ASDIRECTED PRN PRN Reason: Keep Vein Open Labs: Laboratory Tests 07/26/20 07/26/20 07/26/20 Range/Units 03:20 03:20 03:20 WBC 8.03 (4.0-11.0) K/uL RBC 4.24 L (4.30-5.90) M/uL Hgb 12.8 (12.0-16.0) g/dL Hct 37.4 (36.0-46.0) % MCV 88.2 (80.0-98.0) fL MCH 30.2 (27.0-32.0) pg MCHC 34.2 (31.0-37.0) g/dL RDW Std Deviation 39.3 (28.0-62.0) fl RDW Coeff of Gay 12 (11.0-15.0) % Plt Count 399 (150-400) K/uL MPV 9.30 (7.40-12.00) fL Neut % (Auto) 55.6 (48.0-80.0) % Lymph % (Auto) 35.4 (16.0-40.0) % [place] % (Auto) 5.5 (0.0-15.0) % Eos % (Auto) 3.1 (0.0-7.0) % Baso % (Auto) 0.4 (0.0-1.5) % Neut # (Auto) 4.5 (1.4-5.7) K/uL Lymph # (Auto) 2.8 H (0.6-2.4) K/uL [place] # (Auto) 0.4 (0.0-0.8) K/uL Eos # (Auto) 0.3 (0.0-0.7) K/uL Baso # (Auto) 0.0 (0.0-0.1) K/uL Nucleated RBC % 0.0 /100WBC Nucleated RBCs # 0 K/uL D-Dimer, Quantitative 0.35 (0.0-0.50) mg/L FEU Sodium 139 (136-145) mmol/L Potassium 3.8 (3.5-5.1) mmol/L Chloride 103 (98-107) mmol/L Carbon Dioxide 24.3 (21.0-32.0) mmol/L BUN 10 (7.0-18.0) mg/dL Creatinine 0.8 (0.6-1.0) mg/dL Est Cr Clr Drug Dosing 67.14 mL/min Estimated GFR (MDRD) > 60.0 ml/min Glucose 132 H (74-106) mg/dL Calcium 8.9 (8.5-10.1) mg/dL Total Bilirubin 0.2 (0.2-1.0) mg/dL AST 16 (15-37) IU/L ALT 22 (14-63) IU/L Alkaline Phosphatase 78 (46-116) U/L Troponin I < 0.050 (0.000-0.056) ng/mL B-Natriuretic Peptide (<100) PG/ML Total Protein 7.2 (6.4-8.2) g/dL Albumin 3.7 (3.4-5.0) g/dL Globulin 3.5 (2.6-4.0) g/dL Albumin/Globulin Ratio 1.1 (0.9-1.6) Lipase 223 (73-393) U/L 07/26/20 07/26/20 Range/Units 03:20 04:58 WBC (4.0-11.0) K/uL RBC (4.30-5.90) M/uL Hgb (12.0-16.0) g/dL Hct (36.0-46.0) % MCV (80.0-98.0) fL MCH (27.0-32.0) pg MCHC (31.0-37.0) g/dL RDW Std Deviation (28.0-62.0) fl RDW Coeff of Gay (11.0-15.0) % Plt Count (150-400) K/uL MPV (7.40-12.00) fL Neut % (Auto) (48.0-80.0) % Lymph % (Auto) (16.0-40.0) % [place] % (Auto) (0.0-15.0) % Eos % (Auto) (0.0-7.0) % Baso % (Auto) (0.0-1.5) % Neut # (Auto) (1.4-5.7) K/uL Lymph # (Auto) (0.6-2.4) K/uL [place] # (Auto) (0.0-0.8) K/uL Eos # (Auto) (0.0-0.7) K/uL Baso # (Auto) (0.0-0.1) K/uL Nucleated RBC % /100WBC Nucleated RBCs # K/uL D-Dimer, Quantitative (0.0-0.50) mg/L FEU Sodium (136-145) mmol/L Potassium (3.5-5.1) mmol/L Chloride (98-107) mmol/L Carbon Dioxide (21.0-32.0) mmol/L BUN (7.0-18.0) mg/dL Creatinine (0.6-1.0) mg/dL Est Cr Clr Drug Dosing mL/min Estimated GFR (MDRD) ml/min Glucose (74-106) mg/dL Calcium (8.5-10.1) mg/dL Total Bilirubin (0.2-1.0) mg/dL AST (15-37) IU/L ALT (14-63) IU/L Alkaline Phosphatase (46-116) U/L Troponin I < 0.050 (0.000-0.056) ng/mL B-Natriuretic Peptide 14 (<100) PG/ML Total Protein (6.4-8.2) g/dL Albumin (3.4-5.0) g/dL Globulin (2.6-4.0) g/dL Albumin/Globulin Ratio (0.9-1.6) Lipase (73-393) U/L Meds: Medications Generic Name Dose Route Start Last Admin Trade Name Uriq PRN Reason Stop Dose Admin Sodium Chloride 10 ml 07/26/20 03:07 Sodium Chloride 0.9% 10 Ml Syringe FLUSH ASDIRECTED PRN Keep Vein Open Sodium Chloride 2.5 ml 07/26/20 03:07 Sodium Chloride 0.9% 2.5 Ml Syringe FLUSH ASDIRECTED PRN Keep Vein Open Discontinued Medications Generic Name Dose Route Start Last Admin Trade Name Freq PRN Reason Stop Dose Admin Pantoprazole Sodium 40 mg/ 10 mls @ 300 mls/hr 07/26/20 03:07 07/26/20 03:30 Sodium Chloride IV 07/26/20 03:08 300 mls/hr NOW ONE Administration Ketorolac Tromethamine 15 mg 07/26/20 03:07 07/26/20 03:30 Ketorolac 15 Mg/Ml Sdv IVPUSH 07/26/20 03:08 15 mg ONETIME ONE Administration Departure - Departure Time of Disposition: 05:38 Disposition: Home, Self-Care 01 Condition: Good Clinical Impression: Left arm pain - Discharge Information Instructions: Musculoskeletal Pain Referrals: Seth Nuñez MD [Primary Care Provider] - Additional Instructions: You have been seen and evaluated in the ER today secondary to pain and discomfort in your left arm. Your evaluation in the ER did not reveal any significant abnormalities. Your EKG did not show any evidence of ischemia. Your troponins were negative x2. Your chest x-ray did not reveal any significant pathology. Is unclear the exact origin of the pain to your left arm however it appears to be most likely related to musculoskeletal discomfort. Please make an appointment to see your family doctor in the next 1 to 2 days to be reevaluated. They may want to refer you to your production control coordinating clerk for further evaluation as well. Please return to the ER if you start developing any new or concerning symptoms especially pain in your chest, shortness of breath, nausea or vomiting. The following information is given to patients seen in the emergency department who are being discharged to home. This information is to outline your options for follow-up care. We provide all patients seen in our emergency department with a follow-up referral. The need for follow-up, as well as the timing and circumstances, are variable depending upon the specifics of your emergency department visit. If you don't have a primary care physician on staff, we will provide you with a referral. We always advise you to contact your personal physician following an emergency department visit to inform them of the circumstance of the visit and for follow-up with them and/or the need for any referrals to a consulting specialist. The emergency department will also refer you to a specialist when appropriate. This referral assures that you have the opportunity for follow-up care with a specialist. All of these measure are taken in an effort to provide you with optimal care, which includes your follow-up. Under all circumstances we always encourage you to contact your private physician who remains a resource for coordinating your care. When calling for follow-up care, please make the office aware that this follow-up is from your recent emergency room visit. If for any reason you are refused follow-up, please contact the [facility] Emergency Department at and asked to speak to the emergency department charge nurse. [facility] [address] [place] [id number] [facility] [address] [place] [id number] Sepsis Event Note (ED) - Evaluation Sepsis Screening Result: No Definite Risk - Focused Exam Vital Signs: Vital Signs Temp Pulse Resp BP Pulse Ox 07/26/20 02:56 97 F 75 16 165/99 H 98 - My Orders Last 24 Hours: My Active Orders 07/26/20 03:07 EKG Documentation Completion [RC] AM Sodium Chloride 0.9% [Saline Flush] 10 ml FLUSH ASDIRECTED PRN Sodium Chloride 0.9% [Saline Flush] 2.5 ml FLUSH ASDIRECTED PRN Saline Lock Insert [OM.PC] Stat - Assessment/Plan Last 24 Hours: My Active Orders 07/26/20 03:07 EKG Documentation Completion [RC] AM Sodium Chloride 0.9% [Saline Flush] 10 ml FLUSH ASDIRECTED PRN Sodium Chloride 0.9% [Saline Flush] 2.5 ml FLUSH ASDIRECTED PRN Saline Lock Insert [OM.PC] Stat
[2020-07-26 05:58] VITALS: BP 160/85; PULSE 60
== END 2020-07-26 05:50 | disposition home or self-care (01) ==
LOC: MW.ED 02:47
DX: M79.602 Pain in left arm (principal); I10 Essential (primary) hypertension; E11.9 Type 2 diabetes mellitus without complications; E78.00 Pure hypercholesterolemia, unspecified; Z91.048 Other nonmedicinal substance allergy status; Z91.018 Allergy to other foods; Z79.82 Long term (current) use of aspirin; Z79.84 Long term (current) use of oral hypoglycemic drugs; Z79.899 Other long term (current) drug therapy
CPT/HCPCS: 36415; 71045; 80053; 83690; 83880; 84484; 85025; 85379; 93005; 96374; 96375; 99284; C9113; J1885; 93010

== ENCOUNTER 2021-05-30 09:37 | Emergency (ER) | payer OTHER ==
[2021-05-30] MEDS ORDERED: methylPREDNISolone Sodium Succinate 125 MG/2 ML SDV IM ONE (10:01)
[2021-05-30 10:15] VITALS: BP 139/85; PULSE 84
== END 2021-05-30 10:15 | disposition home or self-care (01) ==
LOC: MW.ED 09:37
DX: L25.8 Unspecified contact dermatitis due to other agents (principal); E11.9 Type 2 diabetes mellitus without complications; E78.00 Pure hypercholesterolemia, unspecified; I10 Essential (primary) hypertension; Z91.018 Allergy to other foods; Z91.048 Other nonmedicinal substance allergy status; Z79.84 Long term (current) use of oral hypoglycemic drugs; Z79.899 Other long term (current) drug therapy
CPT/HCPCS: 96372; 99282; J2930; 99283

== ENCOUNTER 2021-06-15 13:50 | Emergency (ER) | payer OTHER ==
[2021-06-15] MEDS ORDERED: Sodium Chloride 0.9% 10 ML Syringe FLUSH PRN (13:55)
[2021-06-15] MEDS ORDERED: Sodium Chloride 0.9% 2.5 ML Syringe FLUSH PRN (13:55)
[2021-06-15 14:57] LABS: BLOOD UREA NITROGEN,BUN 13 mg/dL (7.0-18.0); CARBON DIOXIDE,CO2 25.6 mmol/L (21.0-32.0); CHLORIDE,CL 101 mmol/L (98-107); GLUCOSE RANDOM 103 mg/dL (74-106); POTASSIUM,K 3.2 mmol/L (3.5-5.1); SODIUM,NA 135 mmol/L (136-145)
[2021-06-15 14:59] LABS: CORONAVIRUS COVID-19 NAA NEGATIVE (NEGATIVE); INFLUENZA A NAA NEGATIVE (NEGATIVE); INFLUENZA B NAA NEGATIVE (NEGATIVE)
[2021-06-15 15:57] VITALS: BP 126/84; PULSE 80
== END 2021-06-15 15:53 | disposition home or self-care (01) ==
LOC: MW.ED 13:50
DX: M94.0 Chondrocostal junction syndrome [Tietze] (principal); E78.00 Pure hypercholesterolemia, unspecified; I10 Essential (primary) hypertension; E11.9 Type 2 diabetes mellitus without complications; Z91.048 Other nonmedicinal substance allergy status; Z91.018 Allergy to other foods; Z79.899 Other long term (current) drug therapy; Z79.84 Long term (current) use of oral hypoglycemic drugs; Z20.822 Contact with and (suspected) exposure to COVID-19
CPT/HCPCS: 0240U; 36415; 71045; 80053; 83735; 84484; 85025; 93005; 99285; J3490; 93010; 99283

== ENCOUNTER 2022-07-06 08:54 | Emergency (ER) | payer OTHER ==
[2022-07-06] MEDS ORDERED: Sodium Chloride 0.9% 1,000 ML IV ONE (08:56)
[2022-07-06] MEDS ORDERED: Morphine 4 MG/ML Syringe IVPUSH ONE (09:04)
[2022-07-06] MEDS ORDERED: Ondansetron 4 MG/2 ML SDV IVPUSH ONE (09:04)
[2022-07-06] MEDS ORDERED: Iopamidol 755 MG/ML 500 ML Multipack Bottle IVPUSH ONE (09:39)
[2022-07-06 09:50] LABS: CARBON DIOXIDE,CO2 24.2 mmol/L (21.0-32.0)
[2022-07-06] MEDS ORDERED: Ketorolac 30 MG/ML SDV IVPUSH ONE (11:10)
[2022-07-06 14:28] VITALS: BP 125/78; PULSE 76
== END 2022-07-06 14:29 | disposition home or self-care (01) ==
LOC: MW.ED 08:54
DX: R10.31 Right lower quadrant pain (principal); E11.9 Type 2 diabetes mellitus without complications; I10 Essential (primary) hypertension; E78.00 Pure hypercholesterolemia, unspecified; Z79.84 Long term (current) use of oral hypoglycemic drugs; Z91.048 Other nonmedicinal substance allergy status; Z88.8 Allergy status to other drugs, medicaments and biological substances; Z79.899 Other long term (current) drug therapy
CPT/HCPCS: 36415; 74177; 76856; 80053; 81001; 81025; 83690; 85025; 96361; 96374; 96375; 99284; J1885; J2270; J2405; J7030; Q9967

== ENCOUNTER 2024-04-09 10:18 | Emergency (ER) | payer BC, OTHER ==
[2024-04-09 10:39] VITALS: BP 148/93; PULSE 95
[2024-04-09] MEDS: Cyclobenzaprine 10 MG Tab PO ONE (11:14)
[2024-04-09] MEDS: Lidocaine 4% 1 each Patch TOP PRN (11:14)
[2024-04-09 12:02] LABS: APPEARANCE,URINE CLEAR; BILIRUBIN,URINE NEGATIVE (NEGATIVE); COLOR,URINE YELLOW; GLUCOSE,URINE NEGATIVE (NEGATIVE); KETONES,URINE NEGATIVE (NEGATIVE); LEUKOCYTE ESTERASE,URINE NEGATIVE (NEGATIVE); NITRITE,URINE NEGATIVE (NEGATIVE); OCCULT BLOOD,URINE NEGATIVE (NEGATIVE); PROTEIN,URINE NEGATIVE (NEGATIVE); UROBILINOGEN,URINE 0.2 EU/dL (<2.0)
== END 2024-04-09 12:09 | disposition home or self-care (01) ==
LOC: MW.ED 10:18
DX: M54.6 Pain in thoracic spine (principal); I10 Essential (primary) hypertension; E78.00 Pure hypercholesterolemia, unspecified; E11.9 Type 2 diabetes mellitus without complications; Z90.710 Acquired absence of both cervix and uterus; Z91.018 Allergy to other foods; Z91.048 Other nonmedicinal substance allergy status; Z79.84 Long term (current) use of oral hypoglycemic drugs; Z79.899 Other long term (current) drug therapy; Z75.8 Other problems related to medical facilities and other health care
CPT/HCPCS: 71046; 81003; 81025; 99283; A9270